=== PATIENT | female | born 1945 | race Caucasian/White ===

== ENCOUNTER 2017-11-01 08:01 | Inpatient (IN) | payer MEDICARE, BC, SELFPAY ==
[2017-11-01] VITALS (9 sets, daily range): BP systolic 86–112; BP diastolic 52–60; PULSE 75–110; RESP 14–22; TEMP 36.6–37.2; O2SAT 97–100; BMI 20.3; BMI 20.6
--- NOTE | 2017-11-01 08:19 | PC.NURSE ---
pt reports, discomfort
--- NOTE | 2017-11-01 08:22 | PC.NURSE ---
dark stool the last 4 days, dizziness for one week.
[2017-11-01 08:56] LABS: Add Manual Diff / Slide Review NO; Basophils Percent Auto 0.3 % (0-2); Eosinophils Percent Auto 0.1 % (2-4); Hematocrit 24.6 % (36-46); Hemoglobin 8.8 g/dL (12.0-16.0); Lymphocytes Percent Auto 17.1 % (25-40); Mean Corpuscular HGB Conc 35.7 % (30-36); Mean Corpuscular Hemoglobin 33.1 PG (26-34); Mean Corpuscular Volume 92.7 fL (80-100); Monocytes Percent Auto 5.6 % (3-14); Neutrophils Absolute Auto 4800 /uL (3000-5900); Neutrophils Percent Auto 76.9 % (50-75); Platelet Count 160 X10^3/uL (150-400); Red Blood Cell Count 2.65 X10^6/uL (4.0-5.2); Red Cell Distribution Width 12.7 % (11.6-14.8); White Blood Cell Count 6.3 X10^3/uL (4.5-11.0)
[2017-11-01 09:01] LABS: Alanine Aminotransferase 29 IU/L (9-52); Albumin 3.6 g/dL (3.5-5.0); Albumin Globulin Ratio 1.6 (1.0-2.8); Alkaline Phosphatase 45 U/L (38-126); Aspartate Aminotransferase 20 IU/L (14-36); BUN Creatinine Ratio 52.9 (6-22); Bilirubin Total 0.4 mg/dL (0.2-1.3); Blood Urea Nitrogen 37 mg/dL (7-17); Calcium 9.2 mg/dL (8.4-10.2); Carbon Dioxide 23 mmol/L (22-32); Chloride 102 mmol/L (98-107); Estimated Glomerular Filt Rate > 60.0 mL/min (>60); Globulin 2.2 g/dL (1.7-4.1); Glucose 100 mg/dL (80-110); HEMOLYSIS < 15 (0-50); Lipase 142 U/L (23-300); Potassium 4.1 mmol/L (3.4-5.1); Sodium 135 mmol/L (137-145); Total Protein 5.8 g/dL (6.3-8.2)
[2017-11-01 09:30] LABS: INR 1.1 (0.9-1.3); Prothrombin Time 11.8 SECONDS (10.1-12.7)
[2017-11-01 09:33] LABS: PTT Partial Thromboplastin Tim 29 SECONDS (26.4-36.2)
--- NOTE | 2017-11-01 10:08 | ED_ITS ---
HPI - Abdominal Pain General Chief Complaint: Abdominal Pain Stated Complaint: Dark stools, dizziness History of Present Illness HPI narrative: HPI 72-year-old female presents for evaluation of 3-4 days of dark tarry stools, mild lightheadedness, and mild decreased exercise tolerance. Patient notes that she takes ibuprofen 3 to 4 times per week for headaches. Denies a history of EtOH abuse. No known liver disease. * Anticoagulation / antiplatelet: denies. * Colonoscopy: ~10 years ago * Denies a history of aortic aneurysm repair. M/S/F/SocHx notable for: please see HPI; remainder reviewed with patient and in chart. ROS: Negative constitutional, eye, cardiovascular, pulmonary, GI, , MSK, skin , neurologic, psychiatric, endocrine unless noted in the HPI. Exam Gen: Pleasant, non-toxic appearing, resting comfortably. HEENT: NC, AT, PEERL, EOMI. Resp: Clear to auscultation bilaterally, normal work of breathing, no accessory muscle usage. Card: Regular rate and rhythm with no murmurs, rubs, or gallops, extremities warm and well perfused. GI: Non-tender to palpation throughout all quadrants, no focal tenderness at McBurney's point, negative Garrison's sign, non-distended, no rebound or guarding. : Chaperoned exam - no visible fissures, there are no visible prolapsed internal hemorrhoids or thrombosed/inflammed/bleeding external hemorroids. No visible areas of perianal erythema and there is no palpable perianal fluctance, crepitus or warmth. Digital rectal exam without gross blood or palpable abnormalities. MSK: No visible deformities, strength and tone without visually appreciable deficit. Skin: mild pallor, otherwise normal color with no visible lesions. Neuro: AO x 3, no facial asymmetry, vision and hearing WNL. Psych: Mood and affect appropriate. Labs / Imaging: WBC 6.3, Hb 8.8, PLT 160, PT/INR , total bilirubin 0.4, AST 20, ALT 29, ALP 45 Na 135, K 4.1, BUN 37, Cr 0.70 (BUN/Cr 52.9) MDM Previous chart, nursing note, labs, imaging, and vitals reviewed. A: 72-year-old female presents for evaluation of 3-4 days of dark tarry stools, mild lightheadedness, and mild decreased exercise tolerance. DDx: angiodysplasia, diverticulosis / diverticulitis, colitis (ischemic, radiation), colonic carcinoma or polyp, anal fissure, hemorrhoids, inflammatory bowel disease, ischaemic colitis, fistula, Meckel?s diverticulum, colonic ulcer , small bowel diease (tumor, diverticula, intussusception), hemobilia, upper GI bleed, hypovolemia, anemia, coagulopathy. Evaluation: * FOBT positive * patient anemic, BUN/Cr ratio suggestive of upper GI source, this is congruent with the patient's stool color. Tentatively suspect secondary to NSAID ulcers/ gastritis. No evidence of hepatic disease or variceal bleeding. Transfusion not presently required. Type and screen sent. * Patient admitted for further evaluation. * Discussed patient's case with the general surgeon management information systems director, Dr. Lemons, patient appropriate for management at this facility. * Patient admitted to Dr. Diaz, Protonix given. Bridging orders entered ( n.p.o., NS at 125 ML/HR). Impression: suspected upper GI bleed. (please reference below for remainder of encounter information) Related Data Home Medications Medication Instructions Recorded Confirmed alprazolam 0.25 mg #0 04/09/17 mfxesoo-iuqpnddvxbusa-xuxqhlmp 1 tab PO #0 04/09/17 [Excedrin Migraine] ibuprofen [Advil] #0 04/09/17 omega 4-hup-xsu-fish oil [Fish Oil] 1,000 mg PO #0 04/09/17 Previous Rx's Medication Instructions Recorded candesartan 16 mg PO QDAY #30 tab 06/09/17 sumatriptan succinate 100 mg PO SEE INSTRUCTIONS #12 tab 06/09/17 Allergies Allergy/AdvReac Type Severity Reaction Status Date / Time No Known Drug Allergies Allergy Verified 11/01/17 08:12 [facility] Social History Smoking Status: Never smoker Exam Initial Vital Signs Initial Vital Signs: Vital Signs Temperature 98.8 F 11/01/17 08:02 Pulse Rate 110 H 11/01/17 08:02 Respiratory Rate 22 11/01/17 08:02 Blood Pressure 108/60 11/01/17 08:02 Pulse Oximetry 100 11/01/17 08:02 Course Orders Ordered: ED Orders 11/01/17 08:25 Complete Blood Count AUTO DIFF Stat Comprehensive Metabolic Panel Stat Lipase Stat Partial Thromboplastin Time Stat Prothrombin Time INR Stat Type and Screen Stat 11/01/17 10:01 Consult to Physician Routine Consult to Physician Stat Pantoprazole Sodium 80 mg/ (Sodium Chloride) 100 mls @ 10 mls/hr IV NOW ONE Stop: 11/01/17 20:00 Sodium Chloride (Normal Saline 0.9%) 1,000 mls @ 125 mls/hr IV CONT EDWARD Vital Signs - 8 hr 11/01/17 08:02 11/01/17 08:49 11/01/17 10:01 Temperature 98.8 F Pulse Rate 110 H 81 90 Respiratory Rate 22 14 14 Blood Pressure 108/60 Blood Pressure [Left Arm] 102/56 L Pulse Oximetry 100 97 100 MDM - Abdominal Pain Lab Data Result diagrams: 11/01/17 08:25 11/01/17 08:25 Lab Results 11/01/17 11/01/17 11/01/17 Range/Units 08:25 08:25 08:25 WBC 6.3 (4.5-11.0) X10^3/uL RBC 2.65 L (4.0-5.2) X10^6/uL Hgb 8.8 L (12.0-16.0) g/dL Hct 24.6 L (36-46) % MCV 92.7 (80-100) fL MCH 33.1 (26-34) PG MCHC 35.7 (30-36) % RDW 12.7 (11.6-14.8) % Plt Count 160 (150-400) X10^3/uL Neut % (Auto) 76.9 H (50-75) % Lymph % (Auto) 17.1 L (25-40) % [place] % (Auto) 5.6 (3-14) % Eos % (Auto) 0.1 L (2-4) % Baso % (Auto) 0.3 (0-2) % Neut # (Auto) 4800 (5324-7704) /uL PT (10.1-12.7) SECONDS INR (0.9-1.3) APTT (26.4-36.2) SECONDS Sodium 135 L (137-145) mmol/L Potassium 4.1 (3.4-5.1) mmol/L Chloride 102 (98-107) mmol/L Carbon Dioxide 23 (22-32) mmol/L BUN 37 H (7-17) mg/dL Creatinine 0.70 (0.52-1.04) mg/dL Estimated GFR > 60.0 (>60) mL/min BUN/Creatinine Ratio 52.9 H (6-22) Glucose 100 (80-110) mg/dL Calcium 9.2 (8.4-10.2) mg/dL Total Bilirubin 0.4 (0.2-1.3) mg/dL AST 20 (14-36) IU/L ALT 29 (9-52) IU/L Alkaline Phosphatase 45 (38-126) U/L Total Protein 5.8 L (6.3-8.2) g/dL Albumin 3.6 (3.5-5.0) g/dL Globulin 2.2 (1.7-4.1) g/dL Albumin/Globulin Ratio 1.6 (1.0-2.8) Lipase 142 (23-300) U/L Blood Type O Positive Antibody Screen Negative 11/01/17 Range/Units 08:25 WBC (4.5-11.0) X10^3/uL RBC (4.0-5.2) X10^6/uL Hgb (12.0-16.0) g/dL Hct (36-46) % MCV (80-100) fL MCH (26-34) PG MCHC (30-36) % RDW (11.6-14.8) % Plt Count (150-400) X10^3/uL Neut % (Auto) (50-75) % Lymph % (Auto) (25-40) % [place] % (Auto) (3-14) % Eos % (Auto) (2-4) % Baso % (Auto) (0-2) % Neut # (Auto) (9901-4674) /uL PT 11.8 (10.1-12.7) SECONDS INR 1.1 (0.9-1.3) APTT 29 (26.4-36.2) SECONDS Sodium (137-145) mmol/L Potassium (3.4-5.1) mmol/L Chloride (98-107) mmol/L Carbon Dioxide (22-32) mmol/L BUN (7-17) mg/dL Creatinine (0.52-1.04) mg/dL Estimated GFR (>60) mL/min BUN/Creatinine Ratio (6-22) Glucose (80-110) mg/dL Calcium (8.4-10.2) mg/dL Total Bilirubin (0.2-1.3) mg/dL AST (14-36) IU/L ALT (9-52) IU/L Alkaline Phosphatase (38-126) U/L Total Protein (6.3-8.2) g/dL Albumin (3.5-5.0) g/dL Globulin (1.7-4.1) g/dL Albumin/Globulin Ratio (1.0-2.8) Lipase (23-300) U/L Blood Type Antibody Screen Discharge Plan Departure Patient Disposition: Admitted as Observation Clinical Impression: Acute upper gastrointestinal bleeding
[2017-11-01] MEDS: SODIUM CHLORIDE 0.9% 1,000 ML 125 ML IV ×2 (10:26→20:45)
[2017-11-01] MEDS: PANTOPRAZOLE 80 MG in SODIUM CHLORIDE 0.9% 100 ML 10 ML IV ×2 (10:26→20:45)
--- NOTE | 2017-11-01 13:18 | PC.NURSE ---
Day shift: Arrived on unit from ED at approx 1000. Oriented to room and call light. Remains NPO. has not been in to see Pt as this is writen. IV fluids and IV protonix running per JUL. SBA to BR. Does have weakness and light headedness. No pain. Reports dark stool for 4 days. H/H is 8/24. Per ED RN report plan is for scope tomorrow.
[2017-11-01 13:43] LABS: Add Manual Diff / Slide Review NO; Basophils Percent Auto 0.3 % (0-2); Eosinophils Percent Auto 0.2 % (2-4); Hematocrit 22.8 % (36-46); Hemoglobin 8.1 g/dL (12.0-16.0); Lymphocytes Percent Auto 26.7 % (25-40); Mean Corpuscular HGB Conc 35.5 % (30-36); Mean Corpuscular Hemoglobin 32.8 PG (26-34); Mean Corpuscular Volume 92.5 fL (80-100); Monocytes Percent Auto 7.2 % (3-14); Neutrophils Absolute Auto 5200 /uL (3000-5900); Neutrophils Percent Auto 65.6 % (50-75); Platelet Count 148 X10^3/uL (150-400); Red Blood Cell Count 2.46 X10^6/uL (4.0-5.2); Red Cell Distribution Width 12.8 % (11.6-14.8)
--- NOTE | 2017-11-01 13:54 | PM.HP.1 ---
History of Present Illness Chief complaint: Dark stools, dizziness Narrative: Tootie Quintero is a 72 year old female who presents to the emergency department today via private vehicle with complaints of exertional dyspnea, progressively worsening over the course of the last several days and black tarry stools and lightheadedness and dizziness. She has a history primarily of migraine headaches and hyperlipidemia and takes ibuprofen up to 3 to 4 times a week for migraine headaches. She noticed over the last 2 years she has had progressive worsening lightheadedness and then she developed upper abdominal pain that awakened her from sleep from Friday night and Friday night and this was associated with black tarry stools. She has approximately 2 black tarry stools the day had 1 this morning and that she describes as being small. She had some in the office on Friday to get an appointment to follow-up on her hyperlipidemia with Dr. Michelle and then because of the worsened the exertional dyspnea she phone the on-call physician and was instructed to go to the emergency room. She was found to have melena stools that were heme-positive and significant anemia and therefore she was admitted for further treatment and monitoring. She was last seen by Dr. Michelle approximately a year ago. Her past medical history: 1. Migraine headache disorder for which she sees Olivier Angeles. Last seen approximately 8 months ago. Two. Hyperlipidemia Past surgical history: One. 1948 she had a T and adenoidectomy Two. 1977 primary low transverse section 3. Benign breast tumor removal in 1983. 4. GHADA with BSO secondary to endometriosis 1983 Health related behavior: she does not smoke and has never been a smoker; occasional alcohol; she works out at [employer] 3 days a week and she walks frequently even on a daily basis Social history: She is and lives with her here in in a [facility]. They have 1 daughter who is 40 years old who lives in [facility]. Patient is originally from [facility] but they moved to [place] to retire. Family history: Mom at age 84 with dementia and presumed acute [place] Dad in 1965 from COPD and prostate cancer Sister at age 59 from non-Hodgkin's lymphoma Aunt with breast cancer Uncle with throat cancer Patient History Family & Social History Social History: household members spouse Prior Living Arrangements House Safety & Behavioral: Feels Safe in Current Yes Environment Been Physically Hurt or No Threatened By a Person Suicidal Ideation Description None Suicide Plan Description No Plan Tobacco & Substance use: Smoking Status Never smoker alcohol intake current alcohol intake frequency a few times a month Substance Use Type does not use Meds Home Medications Medication Instructions Recorded Confirmed Type alprazolam 0.25 mg PO PRN PRN #0 04/09/17 11/01/17 History dzyeoyu-hmqunazsaqvnr-hogfeiaw 1 tab PO PRN PRN #0 04/09/17 11/01/17 History [Excedrin Migraine] ibuprofen [Advil] 100 mg PO PRN PRN #0 04/09/17 11/01/17 History omega 6-pzq-yet-fish oil [Fish Oil] 1,000 mg PO DAILY #0 04/09/17 11/01/17 History candesartan 16 mg PO QDAY #30 tab 06/09/17 11/01/17 Rx sumatriptan succinate 100 mg PO SEE INSTRUCTIONS #12 tab 06/09/17 11/01/17 Rx Allergies Allergy/AdvReac Type Severity Reaction Status Date / Time No Known Drug Allergies Allergy Verified 11/01/17 08:12 Review of Systems Review of Systems Patient's last colonoscopy was greater than 10 years ago and was normal. Patient denies any chest pain. Patient is having worsening exertional dyspnea. Patient is having increasing lightheadedness and dizziness with any significant physical activity. She denies presyncope or syncope. She denies any hematemesis. She denies any bright red blood per rectum or hematochezia. She has had mild midepigastric pain. She has had her normal number of migraine headaches. She denies depression or anxiety. She denies skin rashes All systems reviewed & are unremarkable except as noted in HPI and below Exam Vital Signs (past 8 hours): Vital Signs - 8 hr 11/01/17 08:02 11/01/17 08:49 11/01/17 10:01 Temperature 98.8 F Pulse Rate 110 H 81 90 Respiratory Rate 22 14 14 Blood Pressure 108/60 Blood Pressure [Left Arm] 102/56 L Pulse Oximetry 100 97 100 11/01/17 10:03 11/01/17 10:36 Temperature 98.9 F Pulse Rate 86 86 Respiratory Rate 20 16 Blood Pressure 100/60 112/52 L Blood Pressure [Left Arm] Pulse Oximetry 100 100 Pulse Oximetry 100 Oxygen Delivery Method Room Air Narrative Exam Narrative: This very pleasant pale appearing female in no apparent distress. Vital signs are stable HEENT: Conjunctivae are pale. Mucous membranes are moist and pink Neck: Supple without adenopathy or thyromegaly Chest: Clear to auscultation without wheezes rhonchi or crackles Cor: Regular rate and rhythm with distant S1 and S2. No murmur rubs or gallops Abdomen: Positive bowel sounds, soft, nontender, nondistended, no hepatosplenomegaly, no guarding, no rebound Extremities: No edema, pulses intact Skin: Pale no rashes Neurologic exam: Nonfocal Objective Labs Result Diagrams: 11/01/17 13:38 11/01/17 08:25 Labs: Laboratory Results - last 24 hr 11/01/17 11/01/17 11/01/17 08:25 08:25 08:25 WBC 6.3 RBC 2.65 L Hgb 8.8 L Hct 24.6 L MCV 92.7 MCH 33.1 MCHC 35.7 RDW 12.7 Plt Count 160 Neut % (Auto) 76.9 H Lymph % (Auto) 17.1 L [place] % (Auto) 5.6 Eos % (Auto) 0.1 L Baso % (Auto) 0.3 Neut # (Auto) 4800 PT INR APTT Sodium 135 L Potassium 4.1 Chloride 102 Carbon Dioxide 23 BUN 37 H Creatinine 0.70 Estimated GFR > 60.0 BUN/Creatinine Ratio 52.9 H Glucose 100 Calcium 9.2 Total Bilirubin 0.4 AST 20 ALT 29 Alkaline Phosphatase 45 Total Protein 5.8 L Albumin 3.6 Globulin 2.2 Albumin/Globulin Ratio 1.6 Lipase 142 Blood Type O Positive Antibody Screen Negative 11/01/17 11/01/17 08:25 13:38 WBC 8.0 RBC 2.46 L Hgb 8.1 L Hct 22.8 L MCV 92.5 MCH 32.8 MCHC 35.5 RDW 12.8 Plt Count 148 L Neut % (Auto) 65.6 Lymph % (Auto) 26.7 [place] % (Auto) 7.2 Eos % (Auto) 0.2 L Baso % (Auto) 0.3 Neut # (Auto) 5200 PT 11.8 INR 1.1 APTT 29 Sodium Potassium Chloride Carbon Dioxide BUN Creatinine Estimated GFR BUN/Creatinine Ratio Glucose Calcium Total Bilirubin AST ALT Alkaline Phosphatase Total Protein Albumin Globulin Albumin/Globulin Ratio Lipase Blood Type Antibody Screen Assessment & Plan Plan: Plan: 72-year-old female admitted for anemia secondary to GI blood loss thought to be upper GI in location. Admit to the hospital. Serial H and H and if persistent blood loss will transfuse blood. Will type and hold x2 units and stay [address] Lemons has been consulted for presumed upper endoscopy PPI IV IV fluids No further NSAIDs Patient currently hemodynamically stable Assessment 2. Migraine headache disorder Plan: No further NSAIDs. Will hold the candesartan for now given blood loss. Will use sumatriptan as needed and Tylenol as needed Assessment 2. DVT prophylaxis will do bilateral SCDs. Lovenox is contraindicated Code status full code
--- NOTE | 2017-11-01 14:07 | P.HP_ITS ---
History of Present Illness Chief complaint: Dark stools, dizziness Narrative: Tootie Quintero is a 72 year old female who presents to the emergency department today via private vehicle with complaints of exertional dyspnea, progressively worsening over the course of the last several days and black tarry stools and lightheadedness and dizziness. She has a history primarily of migraine headaches and hyperlipidemia and takes ibuprofen up to 3 to 4 times a week for migraine headaches. She noticed over the last 2 years she has had progressive worsening lightheadedness and then she developed upper abdominal pain that awakened her from sleep from Friday night and Friday night and this was associated with black tarry stools. She has approximately 2 black tarry stools the day had 1 this morning and that she describes as being small. She had some in the office on Friday to get an appointment to follow-up on her hyperlipidemia with Dr. Michelle and then because of the worsened the exertional dyspnea she phone the on-call physician and was instructed to go to the emergency room. She was found to have melena stools that were heme-positive and significant anemia and therefore she was admitted for further treatment and monitoring. She was last seen by Dr. Michelle approximately a year ago. Her past medical history: 1. Migraine headache disorder for which she sees Olivier Angeles. Last seen approximately 8 months ago. Two. Hyperlipidemia Past surgical history: One. 1948 she had a T and adenoidectomy Two. 1977 primary low transverse section 3. Benign breast tumor removal in 1983. 4. GHADA with BSO secondary to endometriosis 1983 Health related behavior: she does not smoke and has never been a smoker; occasional alcohol; she works out at [employer] 3 days a week and she walks frequently even on a daily basis Social history: She is and lives with her here in in a [facility]. They have 1 daughter who is 40 years old who lives in [facility]. Patient is originally from [facility] but they moved to [place] to retire. Family history: Mom at age 84 with dementia and presumed acute [place] Dad in 1965 from COPD and prostate cancer Sister at age 59 from non-Hodgkin's lymphoma Aunt with breast cancer Uncle with throat cancer Patient History Family & Social History Social History: household members spouse Prior Living Arrangements House Safety & Behavioral: Feels Safe in Current Yes Environment Been Physically Hurt or No Threatened By a Person Suicidal Ideation Description None Suicide Plan Description No Plan Tobacco & Substance use: Smoking Status Never smoker alcohol intake current alcohol intake frequency a few times a month Substance Use Type does not use Meds Home Medications Medication Instructions Recorded Confirmed Type alprazolam 0.25 mg PO PRN PRN #0 04/09/17 11/01/17 History leetekx-khxfunmhlkbdd-ujxngwzh 1 tab PO PRN PRN #0 04/09/17 11/01/17 History [Excedrin Migraine] ibuprofen [Advil] 100 mg PO PRN PRN #0 04/09/17 11/01/17 History omega 4-fxp-byi-fish oil [Fish Oil] 1,000 mg PO DAILY #0 04/09/17 11/01/17 History candesartan 16 mg PO QDAY #30 tab 06/09/17 11/01/17 Rx sumatriptan succinate 100 mg PO SEE INSTRUCTIONS #12 tab 06/09/17 11/01/17 Rx Allergies Allergy/AdvReac Type Severity Reaction Status Date / Time No Known Drug Allergies Allergy Verified 11/01/17 08:12 Review of Systems Review of Systems Patient's last colonoscopy was greater than 10 years ago and was normal. Patient denies any chest pain. Patient is having worsening exertional dyspnea. Patient is having increasing lightheadedness and dizziness with any significant physical activity. She denies presyncope or syncope. She denies any hematemesis. She denies any bright red blood per rectum or hematochezia. She has had mild midepigastric pain. She has had her normal number of migraine headaches. She denies depression or anxiety. She denies skin rashes All systems reviewed & are unremarkable except as noted in HPI and below Exam Vital Signs (past 8 hours): Vital Signs - 8 hr 3 11/01/17 08:02 11/01/17 08:49 11/01/17 10:01 Temperature 98.8 F Pulse Rate 110 H 81 90 Respiratory Rate 22 14 14 Blood Pressure 108/60 Blood Pressure [Left Arm] 102/56 L Pulse Oximetry 100 97 100 3 11/01/17 10:03 11/01/17 10:36 Temperature 98.9 F Pulse Rate 86 86 Respiratory Rate 20 16 Blood Pressure 100/60 112/52 L Blood Pressure [Left Arm] Pulse Oximetry 100 100 Pulse Oximetry 100 Oxygen Delivery Method Room Air Narrative Exam Narrative: This very pleasant pale appearing female in no apparent distress. Vital signs are stable HEENT: Conjunctivae are pale. Mucous membranes are moist and pink Neck: Supple without adenopathy or thyromegaly Chest: Clear to auscultation without wheezes rhonchi or crackles Cor: Regular rate and rhythm with distant S1 and S2. No murmur rubs or gallops Abdomen: Positive bowel sounds, soft, nontender, nondistended, no hepatosplenomegaly, no guarding, no rebound Extremities: No edema, pulses intact Skin: Pale no rashes Neurologic exam: Nonfocal Objective Labs Result Diagrams: 11/01/17 13:38 11/01/17 08:25 Labs: Laboratory Results - last 24 hr 11/01/17 11/01/17 11/01/17 08:25 08:25 08:25 WBC 6.3 RBC 2.65 L Hgb 8.8 L Hct 24.6 L MCV 92.7 MCH 33.1 MCHC 35.7 RDW 12.7 Plt Count 160 Neut % (Auto) 76.9 H Lymph % (Auto) 17.[address] % (Auto) 5.6 Eos % (Auto) 0.1 L Baso % (Auto) 0.3 Neut # (Auto) 4800 PT INR APTT Sodium 135 L Potassium 4.1 Chloride 102 Carbon Dioxide 23 BUN 37 H Creatinine 0.70 Estimated GFR > 60.0 BUN/Creatinine Ratio 52.9 H Glucose 100 Calcium 9.2 Total Bilirubin 0.4 AST 20 ALT 29 Alkaline Phosphatase 45 Total Protein 5.8 L Albumin 3.6 Globulin 2.2 Albumin/Globulin Ratio 1.6 Lipase 142 Blood Type O Positive Antibody Screen Negative 11/01/17 11/01/17 08:25 13:38 WBC 8.0 RBC 2.46 L Hgb 8.1 L Hct 22.8 L MCV 92.5 MCH 32.8 MCHC 35.5 RDW 12.8 Plt Count 148 L Neut % (Auto) 65.6 Lymph % (Auto) 26.7 [place] % (Auto) 7.2 Eos % (Auto) 0.2 L Baso % (Auto) 0.3 Neut # (Auto) 5200 PT 11.8 INR 1.1 APTT 29 Sodium Potassium Chloride Carbon Dioxide BUN Creatinine Estimated GFR BUN/Creatinine Ratio Glucose Calcium Total Bilirubin AST ALT Alkaline Phosphatase Total Protein Albumin Globulin Albumin/Globulin Ratio Lipase Blood Type Antibody Screen Assessment & Plan Plan: Plan: 72-year-old female admitted for anemia secondary to GI blood loss thought to be upper GI in location. Admit to the hospital. Serial H and H and if persistent blood loss will transfuse blood. Will type and hold x2 units and stay [address] Lemons has been consulted for presumed upper endoscopy PPI IV IV fluids No further NSAIDs Patient currently hemodynamically stable Assessment 2. Migraine headache disorder Plan: No further NSAIDs. Will hold the candesartan for now given blood loss. Will use sumatriptan as needed and Tylenol as needed Assessment 2. DVT prophylaxis will do bilateral SCDs. Lovenox is contraindicated Code status full code
--- NOTE | 2017-11-01 20:35 | P.CONS_ITS ---
History of Present Illness Date Patient Seen: 11/01/17 Time Patient Seen: 20:22 Chief complaint: Dark stools, dizziness Reason for consult: Intestinal bleeding Requesting provider: Alison Diaz Narrative: The patient is a woman who has been having black stools about twice a day for the last 4 days. She has become weak and on standing gets dizzy. This is unusual for her. She has only had 1 stool today she says. She had breakfast this morning and therefore I did not pursue EGD today. She has tolerated p.o. food. No nausea or vomiting. She has been taking nonsteroidal anti-inflammatory agents for migraine headaches. She is not usually on any acid suppression medication. [facility] Medical History Anxiety as acute reaction to exceptional stress (Chronic) Hypercholesterolemia (Chronic) Migraine headache (Chronic) History of benign breast biopsy (Resolved) Surgical History History of (Resolved) History of abdominal hysterectomy (Resolved) History of tonsillectomy and adenoidectomy (Resolved) Family History Father No problems noted. Mother No problems noted. Sister No problems noted. Social History household members: spouse Smoking Status: Never smoker alcohol intake: current Meds Home Medications Medication Instructions Recorded Confirmed Type alprazolam 0.25 mg PO PRN PRN #0 04/09/17 11/01/17 History [id number]-wtcuawnnpgczm-[id number] 1 tab PO PRN PRN #0 04/09/17 11/01/17 History [Excedrin Migraine] ibuprofen [Advil] 100 mg PO PRN PRN #0 04/09/17 11/01/17 History omega 9-hfk-pcb-fish oil [Fish Oil] 1,000 mg PO DAILY #0 04/09/17 11/01/17 History candesartan 16 mg PO QDAY #30 tab 06/09/17 11/01/17 Rx sumatriptan succinate 100 mg PO SEE INSTRUCTIONS #12 tab 06/09/17 11/01/17 Rx Allergies Allergy/AdvReac Type Severity Reaction Status Date / Time No Known Drug Allergies Allergy Verified 11/01/17 08:12 Review of Systems Review of Systems Patient has dry eyes and has had some kind of procedure to block her tear ducts. She wears glasses. No pain arise no earaches or sore throat. No cough cold or asthma. No tooth aches no trouble swallowing. No heart problems chest pain unusual shortness of breath. No bloody bowel movements in the last 40 years. Then she had hemorrhoids. Last colonoscopy 10 years ago. She is due. No seizures or blackouts. No chronic joint or muscle pain. No problems with her pancreas but may be slightly hypothyroid. She suffers from intermittent anxiety and takes an ex perhaps 4 times a year. She had a benign breast biopsy. Up-to-date on mammogram was. Exam Vital Signs (past 8 hours): Vital Signs - 8 hr 3 11/01/17 13:58 11/01/17 16:00 Temperature 98.5 F 98.2 F Pulse Rate 89 89 Respiratory Rate 16 18 Blood Pressure 92/54 L 93/53 L Pulse Oximetry 100 98 Pulse Oximetry 98 Oxygen Delivery Method Room Air Narrative Exam Narrative: Operative pleasant woman in no apparent distress. Her eyes are nonicteric. Pupils equal round reactive to light. Conjunctivae are pale. Ears without lesion. Nasal septum midline without polyps in. Oral mucosa is dry no open lesions. Teeth are intact. She has a prominent hard palate(tensor palatini). No splits in her lips or swelling. Neck is supple. There are no nodes in the neck or supraclavicular areas. Trachea is midline and mobile. Thyroid is not enlarged. There are no masses in neck or thyroid. Lungs are clear to auscultation without rales or rhonchi tiny curve percussion. Heart regular rate and rhythm with occasional ectopy. No bruit in the neck. Her abdomen is scaphoid soft nontender without mass. Liver and spleen are not enlarged. She has a vertical midline scar and a transverse scar in her lower abdomen. I do not appreciate any hernias in the area. She is alert and oriented x3. Speech rate and content are appropriate. Affect is appropriate. Objective Labs Result Diagrams: 11/01/17 13:38 11/01/17 08:25 Labs: Laboratory Results - last 24 hr 11/01/17 11/01/17 11/01/17 08:25 08:25 08:25 WBC 6.3 RBC 2.65 L Hgb 8.8 L Hct 24.6 L MCV 92.7 MCH 33.1 MCHC 35.7 RDW 12.7 Plt Count 160 Neut % (Auto) 76.9 H Lymph % (Auto) 17.1 L Hendricks % (Auto) 5.6 Eos % (Auto) 0.1 L Baso % (Auto) 0.3 Neut # (Auto) 4800 PT INR APTT Sodium 135 L Potassium 4.1 Chloride 102 Carbon Dioxide 23 BUN 37 H Creatinine 0.70 Estimated GFR > 60.0 BUN/Creatinine Ratio 52.9 H Glucose 100 Calcium 9.2 Total Bilirubin 0.4 AST 20 ALT 29 Alkaline Phosphatase 45 Total Protein 5.8 L Albumin 3.6 Globulin 2.2 Albumin/Globulin Ratio 1.6 Lipase 142 Blood Type O Positive Antibody Screen Negative 11/01/17 11/01/17 08:25 13:38 WBC 8.0 RBC 2.46 L Hgb 8.1 L Hct 22.8 L MCV 92.5 MCH 32.8 MCHC 35.5 RDW 12.8 Plt Count 148 L Neut % (Auto) 65.6 Lymph % (Auto) 26.7 Hendricks % (Auto) 7.2 Eos % (Auto) 0.2 L Baso % (Auto) 0.3 Neut # (Auto) 5200 PT 11.8 INR 1.1 APTT 29 Sodium Potassium Chloride Carbon Dioxide BUN Creatinine Estimated GFR BUN/Creatinine Ratio Glucose Calcium Total Bilirubin AST ALT Alkaline Phosphatase Total Protein Albumin Globulin Albumin/Globulin Ratio Lipase Blood Type Antibody Screen Assessment & Plan Plan: Plan: Patient with an upper GI bleed for the last 4 days. Would recommend an EGD and potential need for treatment. I believe she is probably stop bleeding based on the fact she has had no more black bowel movements since arriving. She is on proton pump inhibitors. Plan to do this in the morning. I have discussed the procedure and rationale with her. Risks of bleeding, and perforation were discussed. I also discussed the possible use of anesthesia NK she begins to bleed again. This would allow me to protect her airway by intubating her. All questions were answered. I will call her let him know when.
--- NOTE | 2017-11-01 21:51 | PC.NURSE ---
Evening Shift Note A&O throughout shift, VSS, 98% on RA. No complaints of pain or discomfort. Pt tolerating full liquid diet w/o N/V. NPO @ 0000 for scheduled endoscopy. Consent signed and in chart. No dark tarry stools this shift. Up w/ SBA, tolerating activity w/o dizziness, uses ronnie light appropriately. L W PIV w/ NS @ 125ml/hr and Protonix @ 10ml/hr.
[2017-11-02] VITALS (30 sets, daily range): BP systolic 78–101; BP diastolic 43–62; PULSE 65–80; RESP 10–22; TEMP 36.6–37.2; O2SAT 91–98
--- NOTE | 2017-11-02 | PATH_ITS ---
[facility] Accession Number: [id number] . 01 Material submitted: . ANTRAL . 02 Diagnosis: Biopsy Gastric Antrum: Focal minimal chronic gastritis. Negative for evidence of Helicobacter on H/E stain. Negative for intestinal metaplasia. Negative for dysplasia and malignancy. V/11/04/2017 . 02 Electronically signed: . Artemio Jauregui MD, Pathologist NPI- [id number] . 01 Gross description: . Received in one formalin-filled container, labeled with the patient's name, labeled antral, are four less than 0.1 cm to 0.3 cm portions of tissue, entirely submitted in one cassette. ([id number]) /FRR . 02 Pathologist provided ICD-10: K29.70 . 02 CPT . 480158 Performed at: 01 [facility] [address] [id number] MD Nilton Canchola MD Phone: [phone] Performed at: 02 [facility] [address] [place], [place] [id number] MD Michael Zarate MD Phone: [phone]
--- NOTE | 2017-11-02 00:02 | PC.NURSE ---
Addendum entered by Hoda Alexander R.N. 11/02/17 07:35: Dr Diaz contacted earlier with report of critical hct of 20.0. Reviewed with her previous hgb/hct results, continued low BP, lack of any BM's during this shift and patient denial of any symptoms. New order was received to transfuse 2 units PRBC's after return from EGD and patient was informed of this and blood consent signed. Subsequently, during bedside shift report patient stated she had just been up to bathroom and had a small black stool although CORPORATE COMMUNICATIONS MANAGER reported stool was formed and brown. Patient also reports she was slightly lightheaded when up to bathroom. Original Note: Addendum entered by Hoda Alexander R.N. 11/02/17 02:23: Dr Diaz informed of earlier BP and now BP lower at 81/46. Patient remains asymptomatic. No new orders at this time. Original Note: Alert and oriented. Breath sounds CTA with RA sat of 97%. Denies SOB, dizziness or lightheadedness. HRR but BP low at 86/52 but patient reports she trends SBP in 90's and is currently asymptomatic. Denies nausea. BT hyperactive. Denies dysuria, frequency, urgency or incontinence. Independent with bed mobility but is provided SBA when OOB for safety as had recent fall. Denies any pain. IVF and Protonix infusing as ordered. NPO now as of 0000 for scheduled EGD in a.m. Fall risk score is high and bed alarm is activated.
[2017-11-02] MEDS: SODIUM CHLORIDE 0.9% 1,000 ML 125 ML IV (02:12)
[2017-11-02 06:25] LABS: Add Manual Diff / Slide Review NO; Basophils Percent Auto 0.7 % (0-2); Eosinophils Percent Auto 1.3 % (2-4); Hemoglobin 7.1 g/dL (12.0-16.0); Lymphocytes Percent Auto 34.1 % (25-40); Mean Corpuscular HGB Conc 35.4 % (30-36); Mean Corpuscular Hemoglobin 33.1 PG (26-34); Mean Corpuscular Volume 93.5 fL (80-100); Monocytes Percent Auto 9.4 % (3-14); Neutrophils Absolute Auto 2200 /uL (3000-5900); Neutrophils Percent Auto 54.5 % (50-75); Platelet Count 130 X10^3/uL (150-400); Red Blood Cell Count 2.14 X10^6/uL (4.0-5.2); Red Cell Distribution Width 12.8 % (11.6-14.8)
[2017-11-02 06:33] LABS: Alanine Aminotransferase 30 IU/L (9-52); Albumin 2.6 g/dL (3.5-5.0); Albumin Globulin Ratio 1.2 (1.0-2.8); Alkaline Phosphatase 32 U/L (38-126); Aspartate Aminotransferase 15 IU/L (14-36); BUN Creatinine Ratio 21.4 (6-22); Bilirubin Total 0.3 mg/dL (0.2-1.3); Blood Urea Nitrogen 15 mg/dL (7-17); Calcium 7.9 mg/dL (8.4-10.2); Carbon Dioxide 25 mmol/L (22-32); Chloride 106 mmol/L (98-107); Estimated Glomerular Filt Rate > 60.0 mL/min (>60); Globulin 2.1 g/dL (1.7-4.1); Glucose 91 mg/dL (80-110); HEMOLYSIS < 15 (0-50); Potassium 3.9 mmol/L (3.4-5.1); Sodium 137 mmol/L (137-145); Total Protein 4.7 g/dL (6.3-8.2)
[2017-11-02] MEDS: PANTOPRAZOLE 80 MG in SODIUM CHLORIDE 0.9% 100 ML 10 ML IV (07:03)
--- NOTE | 2017-11-02 08:58 | PC.NURSE ---
0863 Dr Moses called to have PRBC started as Pt hypotensive. Verified and started PRBC @ 0849. CERTIFIED OPHTHALMIC TECHNICIAN's at bedside for start of transfusion and Pt off floor @ 0858.
[2017-11-02] MEDS: SODIUM CHLORIDE 0.9% 500 ML 21 ML IV (09:10)
--- NOTE | 2017-11-02 09:11 | PM.PREOP ---
Pre-operative Note Interval Note Pre-op Check: History & Physical Reviewed by Physician and Exam Performed H&P completed within 30 days and has changed as indicated here:: hemato crit has fallen to 20. She is getting blood. ASA Class (for procedural sedation): II
--- NOTE | 2017-11-02 09:12 | SUR.HOLD ---
Blood wide open per Dr. Lemons. Peter as witness
[2017-11-02] MEDS: LIDOCAINE 4% SOLN 50 ML 20 ML TOP (09:25)
[2017-11-02] MEDS: TETRACAINE/BENZOCAINE/BUTAMBEN (CETACAINE) BOTTLE 1 SPRAY TOP (09:25)
[2017-11-02] MEDS: fentaNYL 250 MCG/5 ML INJ IV (09:30)
[2017-11-02] MEDS: MIDAZOLAM 5 MG/ML VIAL 2 MG IV (09:30)
--- NOTE | 2017-11-02 09:33 | PM.OP.ENDO ---
Operative Date/Time/Diagnoses - Date of procedure: 11/02/17 Time of procedure: 09:34 Pre-op diagnosis: Upper GI bleed Post-op diagnosis: other (Multiple gastric(antral) ulcers) Procedure & Clinicians Study performed: EGD with cold biopsy Same procedure as scheduled: Yes Indications: Upper GI bleed Surgeon: Balta Lemons Procedure Notes SCOAP/Timeout: Performed Procedure in detail: The patient was placed in left lateral decubitus position underwent IV sedation directed by the surgeon consisting of fentanyl and Versed. Topical anesthetic had been applied to the oropharynx. Bite block was inserted and scope was advanced through it into the esophagus. The esophagus was normal until I reached the GE junction at 40 cm. There was a Schatzki ring but the opening of the esophagus was widely patent. The stomach insufflated well. In the pre-pyloric antrum there were at least 5 visible ulcers. One was a large crater. All were covered with fibrinous exudate and none had a visible vessel. There was absolutely no blood in the upper tract. I passed through the pyloric channel which was edematous into the duodenum. The duodenum was normal to the 3rd part. There may been some mild duodenitis. The scope was brought back into the stomach and retroflexed. There was small hiatal hernia seen from below. Otherwise the proximal stomach was unremarkable. The scope was straightened and multiple biopsies were taken in the antral area at the edges of ulcers. The scope was then removed after removing the air. Patient tolerated the procedure wellThe patient was placed in left lateral decubitus position underwent IV sedation directed by the surgeon consisting of fentanyl and Versed. Topical anesthetic had been applied to the oropharynx. Bite block was inserted and scope was advanced through it into the esophagus. The esophagus was normal until I reached the GE junction at 40 cm. There was a Schatzki ring but the opening of the esophagus was widely patent. The stomach insufflated well. In the pre-pyloric antrum there were at least 5 visible ulcers. One was a large crater. All were covered with fibrinous exudate and none had a visible vessel. There was absolutely no blood in the upper tract. I passed through the pyloric channel which was edematous into the duodenum. The duodenum was normal to the 3rd part. There may been some mild duodenitis. The scope was brought back into the stomach and retroflexed. There was small hiatal hernia seen from below. Otherwise the proximal stomach was unremarkable. The scope was straightened and multiple biopsies were taken in the antral area at the edges of ulcers. The scope was then removed after removing the air. Patient tolerated Scope withdrawal time: Not applicable Sedation minutes: 10 Findings: gastric ulcer (Pre pyloric multiple) Specimen(s): other (Antral biopsies) Complications: none Recommendations: Start medication(s) (Double dose proton pump inhibitor at discharge. Iron replacement. Multiple vitamin.) and Other recommendation (EGD in 10-12 weeks to confirm healing.) Plan for aftercare: Follow-up with me in about 1 month. Follow up: months (One) Disposition: PACU
--- NOTE | 2017-11-02 10:10 | SUR.PHASEI ---
0950 Pt's BP 78/45. Pt awake, alert, denied feeling lightheaded or dizzy. Denied pain. Skin pale. Dr. Lemons notified BP status, pt. in trendelenberg position. VVO to hang another unit. Blood retrieved from the Lab and hung at 75ml/hr.
--- NOTE | 2017-11-02 10:26 | SUR.PHASEI ---
Report called to Muriel Acharya
--- NOTE | 2017-11-02 10:45 | SUR.PHASEI ---
Report to Gaurav Acharya awake, alert. Hypotension but otherwise vs stable. Blood infusing to lt forearm. Rt forearm iv saline locked. Pt's spouse present. Verified he had pt's ring and necklace.
--- NOTE | 2017-11-02 10:47 | SUR.PHASEI ---
addendum: 2nd unit of blood verified with Muriel Villegas.
--- NOTE | 2017-11-02 10:58 | SUR.PHASEI ---
Dr. Lemons evaluated patient prior to transfer to the floor and stated she could be transferred.
--- NOTE | 2017-11-02 11:21 | CM.DPC ---
DCP Assessment: 11/02/17 Case reviewed, EMR reviewed and met with patient. Pt is a 72 yo female admitted under OBS status for Dark Stools/Dizziness/Acute Upper GI bleed, under the care of [facility]. PCP: Dr. Ricardo Michelle Primary payor is: Medicare; secondary is [facility] out of [facility] Other health care agencies used: None Met with patient. Introduced self as DCP, explained role and goals of DCP and as pt advocate and she verbalized understanding. Patient is A&O, very pleasant, and answered all questions. Pt is found reclining in bed after recent EGD this morning. She is also receiving 2nd unit of PRBC. States she was independent at baseline for all ADLs prior to this hospitalization, had no geriatric social work professor or outside help. She lives with her in [place] in their own home. She drives her own car independently. She is not CG for any other. Spouse is Dejuan Quintero who is also her POA. She does have Adv Directives at home, and DCP advised that she have him bring in the paperwork and we can scan it into her medical records. They only have a land line phone: . She does have limited DME in the home: bath bench and a cane which she usually never uses. Let her know where DCP office is located if she or Dejuan should have any questions or needs r/t her eventual discharge. Plan: Discharge to home once deemed medically stable. Likely will need no services. Aislinn Kincaid RN
--- NOTE | 2017-11-02 12:53 | PM.PN.1 ---
Subjective Date Patient Seen: 11/02/17 Time Patient Seen: 12:53 Interval history: Patient is sitting upright in hospital bed and is feeling well. She feels a little bit sleepy but overall feels better and feels better with ambulation with less dizziness and shortness of breath. She has just finished her 2nd unit of packed red blood cells. She underwent an EGD this morning which showed ulcers in the antrum of the stomach. They were not acutely bleeding. Biopsies were taken for H pylori which was likely present. She had 2 small bowel movements this morning that were formed but were black tar colored. She is not having any abdominal pain. She tolerated the food without difficulty. Patient had episodes of hypotension overnight with systolic blood pressure in the lower 80s. She is currently in the 90s. She did not have tachycardia. Her hematocrit dropped to 20 in the us given the hypotension and decreasing hematocrit are low acted to transfuse 2 units of packed red blood cells. Twelve point review of systems is otherwise negative other than above Exam Vital Signs (past 8 hours): Vital Signs - 8 hr 11/02/17 07:29 11/02/17 08:56 11/02/17 09:07 Temperature 98.3 F 97.8 F 99.0 F Pulse Rate 73 72 76 Respiratory Rate 20 18 17 Blood Pressure 83/58 L 99/62 93/58 L Pulse Oximetry 97 11/02/17 09:21 11/02/17 09:26 11/02/17 09:36 Temperature 99.0 F Pulse Rate 67 71 Respiratory Rate 18 Blood Pressure 82/47 L 84/47 L Pulse Oximetry 95 11/02/17 09:39 11/02/17 09:41 11/02/17 09:43 Temperature Pulse Rate 72 74 74 Respiratory Rate 16 10 L 22 Blood Pressure 80/49 L 81/48 L 83/46 L Pulse Oximetry 91 11/02/17 09:46 11/02/17 09:47 11/02/17 09:50 Temperature Pulse Rate 71 71 74 Respiratory Rate 17 17 13 Blood Pressure 78/44 L 78/45 L 82/47 L Pulse Oximetry 96 97 11/02/17 09:51 11/02/17 09:56 11/02/17 10:01 Temperature Pulse Rate 70 71 71 Respiratory Rate 14 18 20 Blood Pressure 78/45 L 79/48 L 79/47 L Pulse Oximetry 97 97 96 11/02/17 10:06 06/03/18 10:16 11/02/17 10:21 Temperature 98.7 F Pulse Rate 69 67 67 Respiratory Rate 20 18 18 Blood Pressure 80/48 L 80/46 L 82/47 L Pulse Oximetry 97 97 98 11/02/17 10:35 11/02/17 11:05 11/02/17 11:35 Temperature 98.4 F 98.7 F 98.4 F Pulse Rate 68 65 71 Respiratory Rate 16 16 16 Blood Pressure 88/52 L 96/46 L Pulse Oximetry 96 97 98 11/02/17 12:46 Temperature 98.8 F Pulse Rate 80 Respiratory Rate 16 Blood Pressure Pulse Oximetry 93 Pulse Oximetry 93 Oxygen Delivery Method Room Air Oxygen Flow Rate 0 Narrative Exam Narrative: Alert and oriented x3. More color in her cheeks HEENT: Unremarkable Neck: Supple without adenopathy or masses Chest: Clear to auscultation without wheezes rhonchi or crackles Cor: Regular rate and rhythm without murmur, rubs, gallops Abdomen: Positive bowel sounds is, soft, nontender, nondistended Extremities: No edema, pulses intact Neurologic exam: Nonfocal Objective Labs Result Diagrams: 11/02/17 06:01 11/02/17 06:01 Labs: Laboratory Results - last 24 hr 11/01/17 11/01/17 11/02/17 08:25 13:38 06:01 WBC 8.0 4.0 L RBC 2.46 L 2.14 L Hgb 8.1 L 7.1 L Hct 22.8 L 20.0 L* MCV 92.5 93.5 MCH 32.8 33.1 MCHC 35.5 35.4 RDW 12.8 12.8 Plt Count 148 L 130 L Neut % (Auto) 65.6 54.5 Lymph % (Auto) 26.7 34.1 Isabela % (Auto) 7.2 9.4 Eos % (Auto) 0.2 L 1.3 L Baso % (Auto) 0.3 0.7 Neut # (Auto) 5200 2200 L Sodium Potassium Chloride Carbon Dioxide BUN Creatinine Estimated GFR BUN/Creatinine Ratio Glucose Calcium Total Bilirubin AST ALT Alkaline Phosphatase Total Protein Albumin Globulin Albumin/Globulin Ratio Blood Type O Positive Antibody Screen Negative Crossmatch (AHG) See Detail 11/02/17 06:01 WBC RBC Hgb Hct MCV MCH MCHC RDW Plt Count Neut % (Auto) Lymph % (Auto) Isabela % (Auto) Eos % (Auto) Baso % (Auto) Neut # (Auto) Sodium 137 Potassium 3.9 Chloride 106 Carbon Dioxide 25 BUN 15 Creatinine 0.70 Estimated GFR > 60.0 BUN/Creatinine Ratio 21.4 Glucose 91 Calcium 7.9 L Total Bilirubin 0.3 AST 15 ALT 30 Alkaline Phosphatase 32 L Total Protein 4.7 L Albumin 2.6 L Globulin 2.1 Albumin/Globulin Ratio 1.2 Blood Type Antibody Screen Crossmatch (AHG) Assessment & Plan Plan: Plan: Very pleasant 74-year-old female admitted for upper GI bleed now status post EGD which shows antral gastric ulcers. Biopsies are pending for H pylori. Patient is status post 2 units packed red blood cells Plan: One. Continue hospitalization to continue to monitor due to patient being hemodynamically safe and stable. She is now improving with fluid resuscitation and packed red blood cell transfusion. We will continue with the IV Protonix continuous drip 80 mg every 10 hr. She will have full liquid diet and advance as tolerated. No more NSAIDs. We will hold her blood pressure medicine that she is on for her migraine headaches at that time because of her hypotension. We will check a hematocrit now and then repeat in the a.m.. Her questions are answered. Assessment 2. Anemia secondary to GI blood loss Plan: Status post 2 units packed red blood cells, recheck in a.m., Protonix Assessment 3. Migraine headache disorder Plan: No further NSAIDs. Will hold antihypertensives for this time. Will likely start tomorrow. Assessment 4. Hyperlipidemia Plan: Will restart lipid-lowering medication.
--- NOTE | 2017-11-02 13:00 | P.PN_ITS ---
Subjective Date Patient Seen: 11/02/17 Time Patient Seen: 12:53 Interval history: Patient is sitting upright in hospital bed and is feeling well. She feels a little bit sleepy but overall feels better and feels better with ambulation with less dizziness and shortness of breath. She has just finished her 2nd unit of packed red blood cells. She underwent an EGD this morning which showed ulcers in the antrum of the stomach. They were not acutely bleeding. Biopsies were taken for H pylori which was likely present. She had 2 small bowel movements this morning that were formed but were black tar colored. She is not having any abdominal pain. She tolerated the food without difficulty. Patient had episodes of hypotension overnight with systolic blood pressure in the lower 80s. She is currently in the 90s. She did not have tachycardia. Her hematocrit dropped to 20 in the us given the hypotension and decreasing hematocrit are low acted to transfuse 2 units of packed red blood cells. Twelve point review of systems is otherwise negative other than above Exam Vital Signs (past 8 hours): Vital Signs - 8 hr 3 11/02/17 07:29 11/02/17 08:56 11/02/17 09:07 Temperature 98.3 F 97.8 F 99.0 F Pulse Rate 73 72 76 Respiratory Rate 20 18 17 Blood Pressure 83/58 L 99/62 93/58 L Pulse Oximetry 97 3 11/02/17 09:21 11/02/17 09:26 11/02/17 09:36 Temperature 99.0 F Pulse Rate 67 71 Respiratory Rate 18 Blood Pressure 82/47 L 84/47 L Pulse Oximetry 95 3 11/02/17 09:39 11/02/17 09:41 11/02/17 09:43 Temperature Pulse Rate 72 74 74 Respiratory Rate 16 10 L 22 Blood Pressure 80/49 L 81/48 L 83/46 L Pulse Oximetry 91 3 11/02/17 09:46 11/02/17 09:47 11/02/17 09:50 Temperature Pulse Rate 71 71 74 Respiratory Rate 17 17 13 Blood Pressure 78/44 L 78/45 L 82/47 L Pulse Oximetry 96 97 3 11/02/17 09:51 11/02/17 09:56 11/02/17 10:01 Temperature Pulse Rate 70 71 71 Respiratory Rate 14 18 20 Blood Pressure 78/45 L 79/48 L 79/47 L Pulse Oximetry 97 97 96 3 11/02/17 10:06 11/02/17 10:16 11/02/17 10:21 Temperature 98.7 F Pulse Rate 69 67 67 Respiratory Rate 20 18 18 Blood Pressure 80/48 L 80/46 L 82/47 L Pulse Oximetry 97 97 98 3 11/02/17 10:35 11/02/17 11:05 11/02/17 11:35 Temperature 98.4 F 98.7 F 98.4 F Pulse Rate 68 65 71 Respiratory Rate 16 16 16 Blood Pressure 88/52 L 96/46 L Pulse Oximetry 96 97 98 3 11/02/17 12:46 Temperature 98.8 F Pulse Rate 80 Respiratory Rate 16 Blood Pressure Pulse Oximetry 93 Pulse Oximetry 93 Oxygen Delivery Method Room Air Oxygen Flow Rate 0 Narrative Exam Narrative: Alert and oriented x3. More color in her cheeks HEENT: Unremarkable Neck: Supple without adenopathy or masses Chest: Clear to auscultation without wheezes rhonchi or crackles Cor: Regular rate and rhythm without murmur, rubs, gallops Abdomen: Positive bowel sounds is, soft, nontender, nondistended Extremities: No edema, pulses intact Neurologic exam: Nonfocal Objective Labs Result Diagrams: 11/02/17 06:01 11/02/17 06:01 Labs: Laboratory Results - last 24 hr 11/01/17 11/01/17 11/02/17 08:25 13:38 06:01 WBC 8.0 4.0 L RBC 2.46 L 2.14 L Hgb 8.1 L 7.1 L Hct 22.8 L 20.0 L* MCV 92.5 93.5 MCH 32.8 33.1 MCHC 35.5 35.4 RDW 12.8 12.8 Plt Count 148 L 130 L Neut % (Auto) 65.6 54.5 Lymph % (Auto) 26.7 34.1 [place] % (Auto) 7.2 9.4 Eos % (Auto) 0.2 L 1.3 L Baso % (Auto) 0.3 0.7 Neut # (Auto) 5200 2200 L Sodium Potassium Chloride Carbon Dioxide BUN Creatinine Estimated GFR BUN/Creatinine Ratio Glucose Calcium Total Bilirubin AST ALT Alkaline Phosphatase Total Protein Albumin Globulin Albumin/Globulin Ratio Blood Type O Positive Antibody Screen Negative Crossmatch (AHG) See Detail 11/02/17 06:01 WBC RBC Hgb Hct MCV MCH MCHC RDW Plt Count Neut % (Auto) Lymph % (Auto) [place] % (Auto) Eos % (Auto) Baso % (Auto) Neut # (Auto) Sodium 137 Potassium 3.9 Chloride 106 Carbon Dioxide 25 BUN 15 Creatinine 0.70 Estimated GFR > 60.0 BUN/Creatinine Ratio 21.4 Glucose 91 Calcium 7.9 L Total Bilirubin 0.3 AST 15 ALT 30 Alkaline Phosphatase 32 L Total Protein 4.7 L Albumin 2.6 L Globulin 2.1 Albumin/Globulin Ratio 1.2 Blood Type Antibody Screen Crossmatch (AHG) Assessment & Plan Plan: Plan: Very pleasant 74-year-old female admitted for upper GI bleed now status post EGD which shows antral gastric ulcers. Biopsies are pending for H pylori. Patient is status post 2 units packed red blood cells Plan: One. Continue hospitalization to continue to monitor due to patient being hemodynamically safe and stable. She is now improving with fluid resuscitation and packed red blood cell transfusion. We will continue with the IV Protonix continuous drip 80 mg every 10 hr. She will have full liquid diet and advance as tolerated. No more NSAIDs. We will hold her blood pressure medicine that she is on for her migraine headaches at that time because of her hypotension. We will check a hematocrit now and then repeat in the a.m.. Her questions are answered. Assessment 2. Anemia secondary to GI blood loss Plan: Status post 2 units packed red blood cells, recheck in a.m., Protonix Assessment 3. Migraine headache disorder Plan: No further NSAIDs. Will hold antihypertensives for this time. Will likely start tomorrow. Assessment 4. Hyperlipidemia Plan: Will restart lipid-lowering medication.
--- NOTE | 2017-11-02 13:31 | CM.DPC ---
DCP Continued/Correction: Per UR Review today, patient meets INPATIENT status. Order was written to reflect this: inpatient from time of admission, as OBS order was written by ER provider, not a valid order. Aislinn Kincaid RN
[2017-11-02 14:54] LABS: Hematocrit 27.2 % (36-46); Hemoglobin 9.6 g/dL (12.0-16.0)
--- NOTE | 2017-11-02 22:11 | PC.NURSE ---
Evening Shift Note A&O, VSS, 98% on RA. No complaints of pain or discomfort. Tolerating activity w/o dizzyness/lightheadedness. SBP in 80's during day shift, now 101/58. Tolerating general diet w/o N/V, BT positive, BM today and passing gas. Up w/ SBA to bathroom, using call light appropriately. NS @ 21mls/hr.
[2017-11-03] VITALS (7 sets, daily range): BP systolic 93–110; BP diastolic 41–69; PULSE 67–95; RESP 15–19; TEMP 36.6–36.9; O2SAT 94–97
[2017-11-03] MEDS: SODIUM CHLORIDE 0.9% 500 ML 21 ML IV (00:48)
[2017-11-03] MEDS: ACETAMINOPHEN 325 MG TABLET 650 MG PO (00:51)
[2017-11-03 05:29] LABS: Add Manual Diff / Slide Review NO; Basophils Percent Auto 0.4 % (0-2); Eosinophils Percent Auto 0.8 % (2-4); Hematocrit 30.1 % (36-46); Hemoglobin 10.6 g/dL (12.0-16.0); Lymphocytes Percent Auto 25.2 % (25-40); Mean Corpuscular HGB Conc 35.1 % (30-36); Mean Corpuscular Hemoglobin 31.2 PG (26-34); Mean Corpuscular Volume 88.9 fL (80-100); Monocytes Percent Auto 5.5 % (3-14); Neutrophils Absolute Auto 5300 /uL (3000-5900); Neutrophils Percent Auto 68.1 % (50-75); Platelet Count 138 X10^3/uL (150-400); Red Blood Cell Count 3.39 X10^6/uL (4.0-5.2); Red Cell Distribution Width 14.5 % (11.6-14.8); White Blood Cell Count 7.8 X10^3/uL (4.5-11.0)
--- NOTE | 2017-11-03 05:31 | PC.NURSE ---
Pt alert and oriented. pt denies dizziness and lightheadedness. pt drinking plenty of fluids. 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 BTX4. denies n/v. call light in reach.
[2017-11-03 05:40] LABS: BUN Creatinine Ratio 11.3 (6-22); Blood Urea Nitrogen 9 mg/dL (7-17); Calcium 8.7 mg/dL (8.4-10.2); Carbon Dioxide 27 mmol/L (22-32); Chloride 101 mmol/L (98-107); Estimated Glomerular Filt Rate > 60.0 mL/min (>60); Glucose 103 mg/dL (80-110); HEMOLYSIS < 15 (0-50); Potassium 3.9 mmol/L (3.4-5.1); Sodium 136 mmol/L (137-145)
--- NOTE | 2017-11-03 08:09 | PM.DS.1 ---
History of Present Illness Chief complaint: UGI Bleed, Hypotension Narrative: Tootie Quintero is a 72 year old female Tootie Quintero is a 72 year old female who presents to the emergency department today via private vehicle with complaints of exertional dyspnea, progressively worsening over the course of the last several days and black tarry stools and lightheadedness and dizziness. She has a history primarily of migraine headaches and hyperlipidemia and takes ibuprofen up to 3 to 4 times a week for migraine headaches. She noticed over the last 2 years she has had progressive worsening lightheadedness and then she developed upper abdominal pain that awakened her from sleep from Friday night and Friday night and this was associated with black tarry stools. She has approximately 2 black tarry stools the day had 1 this morning and that she describes as being small. She had some in the office on Friday to get an appointment to follow-up on her hyperlipidemia with Dr. Michelle and then because of the worsened the exertional dyspnea she phone the on-call physician and was instructed to go to the emergency room. She was found to have melena stools that were heme-positive and significant anemia and therefore she was admitted for further treatment and monitoring. She was last seen by Dr. Michelle approximately a year ago. Her past medical history: 1. Migraine headache disorder for which she sees Olivier Angeles. Last seen approximately 8 months ago. Two. Hyperlipidemia Past surgical history: One. 1948 she had a T and adenoidectomy Two. 1977 primary low transverse section 3. Benign breast tumor removal in 1983. 4. GHADA with BSO secondary to endometriosis 1983 Health related behavior: she does not smoke and has never been a smoker; occasional alcohol; she works out at [employer] 3 days a week and she walks frequently even on a daily basis Social history: She is and lives with her here in in a [place]. They have 1 daughter who is 40 years old who lives in [facility]. Patient is [place] but they moved to [place] to retire. Family history: Mom at age 84 with dementia and presumed acute CA Dad in 1965 from COPD and prostate cancer Sister at age 59 from non-Hodgkin's lymphoma Aunt with breast cancer Uncle with throat cancer Discharge Providers Date of admission: 11/02/17 12:44 Primary care physician: Ricardo Michelle MD Discharge provider: Alison Diaz MD Summary Discharge Diagnosis: Upper GI bleed with endoscopy done on 11/02/2017 which showed nonbleeding gastric antral ulcers. Patient transfused 2 units of packed red blood cells on 11/02/2017 with appropriate response. Feeling much improved on date of discharge. Hospital Course: Patient admitted. Patient transfused 2 units packed red blood cells on hospital day 2. Patient underwent EGD by Dr. Lemons on hospital day 2. And ulcers in the antrum of the stomach were found. They were not bleeding. She was not injected. Biopsies were taken and are pending at the time of discharge. Patient had hypotension on hospital day 2. And this is why she was transfused. She is feeling markedly better on hospital day 3. And was discharged home in stable condition. She will be discharged on her same medications but no NSAIDs and no Excedrin. She will be on Protonix 40 mg twice daily and we will await the H pylori biopsies. She will keep her appointment that she has with Dr. Michelle on Friday. Status at Discharge Cognitive/behavioral status at discharge: Normal Functional status at discharge: independent ambulation Time Spent with Patient Greater than 30 minutes Exam Vital Signs (past 8 hours): Vital Signs - 8 hr 11/03/17 00:50 11/03/17 02:50 11/03/17 05:00 Temperature 98.5 F Pulse Rate 72 Respiratory Rate 19 Blood Pressure 98/53 L 100/69 Pulse Oximetry 94 97 11/03/17 06:43 11/03/17 07:33 11/03/17 07:34 Temperature 97.8 F 98.1 F Pulse Rate 67 95 H Respiratory Rate 19 15 Blood Pressure 100/59 L 110/57 L Pulse Oximetry 95 97 97 Pulse Oximetry 97 Oxygen Delivery Method Room Air Oxygen Flow Rate 0 Narrative Exam Narrative: Patient alert and oriented x3 with stable vital signs HEENT: No mucosal lesions Neck: No adenopathy Chest: Clear to auscultation bilaterally Cor: Regular rate and rhythm without murmur Abdomen: Positive bowel sounds, soft, nontender, nondistended, no hepatosplenomegaly Extremities: No edema, pulses intact Skin no rash Objective Labs Result Diagrams: 11/03/17 05:18 11/03/17 05:18 Labs: Laboratory Results - last 24 hr 11/01/17 11/02/17 11/03/17 08:25 14:45 05:18 WBC 7.8 D RBC 3.39 L Hgb 9.6 L 10.6 L Hct 27.2 L 30.1 L MCV 88.9 D MCH 31.2 MCHC 35.1 RDW 14.5 Plt Count 138 L Neut % (Auto) 68.1 Lymph % (Auto) 25.2 [place] % (Auto) 5.5 Eos % (Auto) 0.8 L Baso % (Auto) 0.4 Neut # (Auto) 5300 Sodium Potassium Chloride Carbon Dioxide BUN Creatinine Estimated GFR BUN/Creatinine Ratio Glucose Calcium Blood Type O Positive Antibody Screen Negative Crossmatch (AHG) See Detail 11/03/17 05:18 WBC RBC Hgb Hct MCV MCH MCHC RDW Plt Count Neut % (Auto) Lymph % (Auto) [place] % (Auto) Eos % (Auto) Baso % (Auto) Neut # (Auto) Sodium 136 L Potassium 3.9 Chloride 101 Carbon Dioxide 27 BUN 9 Creatinine 0.80 Estimated GFR > 60.0 BUN/Creatinine Ratio 11.3 Glucose 103 Calcium 8.7 Blood Type Antibody Screen Crossmatch (AHG) Discharge Plan Discharge Plan Patient Disposition: Home, Self-Care Provider Discharge Instructions Diet: Diet as Tolerated Diet comment: NO NSAIDS; no spicey foods or tomato based foods Activity: as tolerated Discharge Data Primary Care Provider: Ricardo Michelle Attending Provider: Alison Diaz Admit Date/Time: 11/02/17 12:44
--- NOTE | 2017-11-03 08:14 | P.DS_ITS ---
History of Present Illness Chief complaint: UGI Bleed, Hypotension Narrative: Tootie Quintero is a 72 year old female Tootie Quintero is a 72 year old female who presents to the emergency department today via private vehicle with complaints of exertional dyspnea, progressively worsening over the course of the last several days and black tarry stools and lightheadedness and dizziness. She has a history primarily of migraine headaches and hyperlipidemia and takes ibuprofen up to 3 to 4 times a week for migraine headaches. She noticed over the last 2 years she has had progressive worsening lightheadedness and then she developed upper abdominal pain that awakened her from sleep from Friday night and Friday night and this was associated with black tarry stools. She has approximately 2 black tarry stools the day had 1 this morning and that she describes as being small. She had some in the office on Friday to get an appointment to follow-up on her hyperlipidemia with Dr. Michelle and then because of the worsened the exertional dyspnea she phone the on-call physician and was instructed to go to the emergency room. She was found to have melena stools that were heme-positive and significant anemia and therefore she was admitted for further treatment and monitoring. She was last seen by Dr. Michelle approximately a year ago. Her past medical history: 1. Migraine headache disorder for which she sees Olivier Angeles. Last seen approximately 8 months ago. Two. Hyperlipidemia Past surgical history: One. 1948 she had a T and adenoidectomy Two. 1977 primary low transverse section 3. Benign breast tumor removal in 1983. 4. GHADA with BSO secondary to endometriosis 1983 Health related behavior: she does not smoke and has never been a smoker; occasional alcohol; she works out at [employer] 3 days a week and she walks frequently even on a daily basis Social history: She is and lives with her here in in [place]. They have 1 daughter who is 40 years old who lives in [facility]. Patient is originally from [facility] but they moved to [place] to retire. Family history: Mom at age 84 with dementia and presumed acute RI Dad in 1965 from COPD and prostate cancer Sister at age 59 from non-Hodgkin's lymphoma Aunt with breast cancer Uncle with throat cancer Discharge Providers Date of admission: 11/02/17 12:44 Primary care physician: Ricardo Michelle MD Discharge provider: Alison Diaz MD Summary Discharge Diagnosis: Upper GI bleed with endoscopy done on 11/02/2017 which showed nonbleeding gastric antral ulcers. Patient transfused 2 units of packed red blood cells on 11/02/2017 with appropriate response. Feeling much improved on date of discharge. Hospital Course: Patient admitted. Patient transfused 2 units packed red blood cells on hospital day 2. Patient underwent EGD by Dr. Lemons on hospital day 2. And ulcers in the antrum of the stomach were found. They were not bleeding. She was not injected. Biopsies were taken and are pending at the time of discharge. Patient had hypotension on hospital day 2. And this is why she was transfused. She is feeling markedly better on hospital day 3. And was discharged home in stable condition. She will be discharged on her same medications but no NSAIDs and no Excedrin. She will be on Protonix 40 mg twice daily and we will await the H pylori biopsies. She will keep her appointment that she has with Dr. Michelle on Friday. Status at Discharge Cognitive/behavioral status at discharge: Normal Functional status at discharge: independent ambulation Time Spent with Patient Greater than 30 minutes Exam Vital Signs (past 8 hours): Vital Signs - 8 hr 3 11/03/17 00:50 11/03/17 02:50 11/03/17 05:00 Temperature 98.5 F Pulse Rate 72 Respiratory Rate 19 Blood Pressure 98/53 L 100/69 Pulse Oximetry 94 97 3 11/03/17 06:43 11/03/17 07:33 11/03/17 07:34 Temperature 97.8 F 98.1 F Pulse Rate 67 95 H Respiratory Rate 19 15 Blood Pressure 100/59 L 110/57 L Pulse Oximetry 95 97 97 Pulse Oximetry 97 Oxygen Delivery Method Room Air Oxygen Flow Rate 0 Narrative Exam Narrative: Patient alert and oriented x3 with stable vital signs HEENT: No mucosal lesions Neck: No adenopathy Chest: Clear to auscultation bilaterally Cor: Regular rate and rhythm without murmur Abdomen: Positive bowel sounds, soft, nontender, nondistended, no hepatosplenomegaly Extremities: No edema, pulses intact Skin no rash Objective Labs Result Diagrams: 11/03/17 05:18 11/03/17 05:18 Labs: Laboratory Results - last 24 hr 06/02/18 06/03/18 06/04/18 08:25 14:45 05:18 WBC 7.8 D RBC 3.39 L Hgb 9.6 L 10.6 L Hct 27.2 L 30.1 L MCV 88.9 D MCH 31.2 MCHC 35.1 RDW 14.5 Plt Count 138 L Neut % (Auto) 68.1 Lymph % (Auto) 25.2 [place] % (Auto) 5.5 Eos % (Auto) 0.8 L Baso % (Auto) 0.4 Neut # (Auto) 5300 Sodium Potassium Chloride Carbon Dioxide BUN Creatinine Estimated GFR BUN/Creatinine Ratio Glucose Calcium Blood Type O Positive Antibody Screen Negative Crossmatch (AHG) See Detail 11/03/17 05:18 WBC RBC Hgb Hct MCV MCH MCHC RDW Plt Count Neut % (Auto) Lymph % (Auto) [place] % (Auto) Eos % (Auto) Baso % (Auto) Neut # (Auto) Sodium 136 L Potassium 3.9 Chloride 101 Carbon Dioxide 27 BUN 9 Creatinine 0.80 Estimated GFR > 60.0 BUN/Creatinine Ratio 11.3 Glucose 103 Calcium 8.7 Blood Type Antibody Screen Crossmatch (AHG) Discharge Plan Discharge Plan Patient Disposition: Home, Self-Care Provider Discharge Instructions Diet: Diet as Tolerated Diet comment: NO NSAIDS; no spicey foods or tomato based foods Activity: as tolerated Discharge Data Primary Care Provider: Ricardo Michelle Attending Provider: Alison Diaz Admit Date/Time: 11/02/17 12:44
[2017-11-03] MEDS: FISH OIL 1,000 MG CAPSULE 1000 MG PO (08:58)
== END 2017-11-03 09:19 | disposition home or self-care (01) | DRG 378 ==
LOC: ED 10:04 → AC 10:26
PROVIDERS: Specialist; Admitting Provider Family Medicine; Emergency Provider Emergency Medicine; Family Provider Family Medicine; PCP Family Medicine; Visit Provider Family Medicine
PROC: 0DJ08ZZ Inspection of Upper Intestinal Tract, Via Natural or Artificial Opening Endoscopic (ICD-10-PCS; CPT 43235; principal; 2017-11-02 08:15)
DX: K25.4 Chronic or unspecified gastric ulcer with hemorrhage (principal); D62 Acute posthemorrhagic anemia; G43.909 Migraine, unspecified, not intractable, without status migrainosus; F41.9 Anxiety disorder, unspecified; E78.5 Hyperlipidemia, unspecified
CPT/HCPCS: 36415; 36430; 36592; 80048; 80053; 83690; 85014; 85018; 85025; 85610; 85730; 86850; 86900; 86901; 88305; 93005; 99283; 99284; G0378; P9016; A9270; C9113; J2250; J3010

== ENCOUNTER → 2017-11-27 13:35 | Outpatient (CLI) | payer MEDICARE, BC, SELFPAY ==
[2017-11-01 11:11] VITALS: BMI 20.6
[2017-11-20 10:10] VITALS: BMI 20.6
== END ==
PROVIDERS: Family Provider Family Medicine; PCP Family Medicine; Visit Provider Family Medicine
DX: M85.852 Other specified disorders of bone density and structure, left thigh (principal); Z78.0 Asymptomatic menopausal state; Z90.722 Acquired absence of ovaries, bilateral
CPT/HCPCS: 77080

== ENCOUNTER 2018-02-06 06:41 | Day surgery (SDC) | payer MEDICARE, BC, SELFPAY ==
[2017-11-20 10:10] VITALS: BMI 20.6
--- NOTE | 2018-02-06 | PATH_ITS ---
[facility] Accession Number: [id number] . 01 Material submitted: . PRIOR ULCER BED . 02 Diagnosis: Specimen Designated Biopsy Prior Ulcer Bed: Gastric antral mucosa with focal minimal mucosal fibrosis. Negative for significant inflammation, dysplasia and malignancy. Negative for intestinal metaplasia. Negative for evidence of Helicobacter on H/E stain. MRV/02/09/2018 . 02 Electronically signed: . Artemio Jauregui MD, Pathologist NPI- [id number] . 01 Gross description: . Received one formalin-filled container, labeled with the patient's name and labeled prior ulcer bed, are three 0.1 to 0.2 cm portions of tissue entirely submitted in one cassette. (DC:o [id number]) . . /OZO . 02 Pathologist provided ICD-10: Z87.11 . 02 CPT . 516536 Performed at: 01 [facility] [address] [id number] MD Nilton Canchola MD Phone: [phone] Performed at: 02 [facility] [address] [place], [place] [id number] MD Michael Zarate MD Phone: [phone]
[2018-02-06 07:18] VITALS: BP 112/64; PULSE 84; RESP 12; TEMP 36.2; O2SAT 97; BMI 19.8
--- NOTE | 2018-02-06 08:10 | PM.HP.1 ---
History of Present Illness Date Patient Seen: 02/06/18 Time Patient Seen: 08:10 Chief complaint: [id number] EGD COLONOSCOPY Narrative: Patient is a woman who is 10 years out from her last colonoscopy. No history of polyps or colon cancer in her family. The patient had a gastric ulcer treated and she is here for an EGD as well as a colonoscopy. The EGD is to confirm healing. Patient History Medical History Gastric peptic ulcer (Acute) Anxiety as acute reaction to exceptional stress (Chronic) Hypercholesterolemia (Chronic) Migraine headache (Chronic) History of benign breast biopsy (Resolved) Surgical History History of (Resolved) History of abdominal hysterectomy (Resolved) History of right breast biopsy (Resolved) History of tonsillectomy and adenoidectomy (Resolved) Status post cataract extraction of both eyes with insertion of intraocular lens (Resolved) Family & Social History Family History: Reviewed 02/06/18 by Balta Lemons MD Social History: household members spouse Tobacco & Substance use: Smoking Status Never smoker alcohol intake current alcohol intake frequency a few times a month Substance Use Type does not use Meds Home Medications Medication Instructions Recorded Confirmed Type alprazolam 0.25 mg PO PRN PRN #0 04/09/17 12/02/17 History omega 9-ijc-mri-fish oil [Fish Oil] 1,000 mg PO DAILY #0 04/09/17 12/02/17 History pantoprazole 40 mg tablet,delayed 40 mg PO BID 12/02/17 12/02/17 History release simvastatin 20 mg tablet 20 mg PO QPM 12/02/17 12/02/17 History sumatriptan 100 mg tablet 100 mg PO .COMPLEX PRN #12 tab 12/18/17 Rx Allergies Allergy/AdvReac Type Severity Reaction Status Date / Time No Known Drug Allergies Allergy Verified 12/17/17 14:04 Review of Systems Review of Systems All systems reviewed & are unremarkable except as noted in HPI and below Respiratory Comments: Has a chronic dry cough Exam Vital Signs (past 8 hours): - 02/06/18 07:18 Temperature 97.2 F L Pulse Rate 84 Respiratory Rate 12 Blood Pressure 112/64 Pulse Oximetry 97 Oxygen Delivery Method Room Air Narrative Exam Narrative: Operative thin woman in no apparent distress. Lungs are clear to auscultation without rales or rhonchi. There is some upper respiratory noise noted. Heart regular rate and rhythm without murmur gallop. Abdomen is soft nontender without mass. The patient is alert and oriented x3. Assessment & Plan Plan: Assessment/Plan Narrative: Patient here for an EGD to confirm healing of a gastric ulcer. She is also here for screening colonoscopy. I have discussed the procedure and the rationale with the patient including risks of bleeding, perforation which would necessitate a major operation, failure to find remove all lesions and the potential to tattoo. They appeared to understand and wished to proceed.
--- NOTE | 2018-02-06 08:13 | PM.PREOP ---
Pre-operative Note Interval Note Pre-op Check: Yes History & Physical exam performed today by Physician Changes: No ASA Class (for procedural sedation): I
[2018-02-06] MEDS: SODIUM CHLORIDE 0.9% 1,000 ML 200 ML IV (08:18)
[2018-02-06] MEDS: TETRACAINE/BENZOCAINE/BUTAMBEN (CETACAINE) BOTTLE 1 SPRAY TOP (08:28)
[2018-02-06] MEDS: LIDOCAINE 4% SOLN 50 ML 20 ML TOP (08:31)
[2018-02-06] MEDS: fentaNYL 250 MCG/5 ML INJ IV (08:32)
[2018-02-06] MEDS: MIDAZOLAM 5 MG/5 ML VIAL IV (08:32)
--- NOTE | 2018-02-06 09:02 | PM.OP.ENDO ---
Operative Date/Time/Diagnoses Date of procedure: 02/06/18 Time of procedure: 09:03 Pre-op diagnosis: History of gastric ulcer. Screening for colon cancer. Post-op diagnosis: same (Healed gastric ulcer. Internal and external hemorrhoids. Sigmoid diverticulosis.) Procedure & Clinicians Study performed: EGD with cold biopsy. Colonoscopy. Same procedure as scheduled: Yes Indications: Diagnostic. Screening. Surgeon: Balta Lemons Procedure Notes SCOAP/Timeout: Perform Procedure in detail: The patient had topical anesthetic applied to oropharynx. She was placed in left lateral decubitus position and underwent IV sedation directed by the surgeon consisting of fentanyl and Versed. A bite block was inserted and the scope was advanced through it into the esophagus. The esophagus was unremarkable. GE junction was noted at 40 cm from the incisors. The stomach insufflated well. There were no lesions seen in the body, antrum or at the incisura. The area of the ulcer was visible a but appeared to be healed with some scarring. The pyloric channel was [edematous but patent]. The duodenum was unremarkable to the 3rd part. The scope was brought back into the stomach and retroflexed. The proximal stomach[normal in appearance]. The scope was straightened and brought out through the esophagus again. No lesions were seen. The scope was removed and the patient tolerated the procedure well. The patient was repositioned. The patient was placed in the left lateral decubitus position and underwent IV sedation directed by the surgeon consisting of fentanyl and Versed. Digital exam was[remarkable for extensive external hemorrhoids and tags.]. The scope was inserted and advanced through the rectum into the sigmoid, descending, transverse, and ascending colon.[There was some tortuosity and diverticulosis in the sigmoid colon]. The cecum was reached identified by the ileocecal valve and the appendiceal opening. The ileocecal valve was[successfully] cannulated. The terminal ileum was normal in appearance. The scope was gradually brought out. No Polyps were found. The scope ultimately was retroflexed in the rectum. The appearance was[remarkable for internal hemorrhoids without ulceration.]. The scope was removed and the patient tolerated the procedure well Findings: diverticulosis (Sigmoid), gastric ulcer (Healed) and internal hemorrhoids (With external hemorrhoids) Recommendations: Colonscopy in 10 years and Continue medication(s) (But can decrease her proton pump inhibitor to once a day.) Plan for aftercare: As-needed Follow up: as needed Disposition: PACU
[2018-02-06 09:06] VITALS: BP 82/45; PULSE 60; RESP 24; TEMP 36.4; O2SAT 93
[2018-02-06 09:11] VITALS: BP 99/57; PULSE 60; RESP 12; O2SAT 95
[2018-02-06 09:16] VITALS: BP 96/59; PULSE 65; RESP 16; O2SAT 98
[2018-02-06 09:21] VITALS: BP 107/55; PULSE 65; RESP 16; TEMP 36.6; O2SAT 97
[2018-02-06 09:38] VITALS: BP 91/53; PULSE 60; RESP 18; TEMP 36.1; O2SAT 98
--- NOTE | 2018-02-06 09:52 | SUR.PHASEII ---
pt had coffee and juice and a snack. stated she is ready to go home. helped get her dressed. Pt d/jorge in wheelchair. When asked if we could do anything better she stated no everything was great. pt awake and alert. Denies nausea and pain .
== END 2018-02-06 09:42 | disposition home or self-care (01) ==
PROVIDERS: Family Provider Family Medicine; PCP Family Medicine; Visit Provider Specialist
PROC: 0DJD8ZZ Inspection of Lower Intestinal Tract, Via Natural or Artificial Opening Endoscopic (ICD-10-PCS; CPT 45378; 2018-02-06 07:45)
PROC: 0DJ08ZZ Inspection of Upper Intestinal Tract, Via Natural or Artificial Opening Endoscopic (ICD-10-PCS; CPT 43235; 2018-02-06 07:45)
DX: Z12.11 Encounter for screening for malignant neoplasm of colon (principal); Z87.11 Personal history of peptic ulcer disease; K57.30 Diverticulosis of large intestine without perforation or abscess without bleeding; K64.8 Other hemorrhoids; K64.4 Residual hemorrhoidal skin tags; F41.9 Anxiety disorder, unspecified; E78.00 Pure hypercholesterolemia, unspecified
CPT/HCPCS: 43239; G0121; 88305; J2250; J3010

== ENCOUNTER → 2018-05-16 09:36 | Outpatient (CLI) | payer MEDICARE, BC, SELFPAY ==
[2017-11-20 10:10] VITALS: BMI 20.6
--- NOTE | 2018-05-16 | DI.MG.S_ITS ---
BILATERAL DIGITAL SCREENING MAMMOGRAM 3D/2D WITH CAD: 05/16/2018 CLINICAL: Routine screening. Family history of breast cancer. Comparison is made to exams dated: 04/03/2017 mammogram, 09/28/2015 mammogram, and 11/22/2013 mammogram - [facility]. The tissue of both breasts is extremely dense, which lowers the sensitivity of mammography. Current study was also evaluated with a Computer Aided Detection (CAD) system. No significant masses, calcifications, or other findings are seen in either breast. There has been no significant interval change. IMPRESSION: NEGATIVE There is no mammographic evidence of malignancy. A 1 year screening mammogram is recommended. This exam was interpreted at Station ID: [id number]. NOTE: For mammograms, a report in lay terms will be sent to the patient. Approximately 15% of breast malignancies will not be visualized mammographically. In the management of a palpable breast mass, a negative mammogram must not discourage biopsy of a clinically suspicious lesion. Electronically Signed By: Karen suggs/emery:05/18/2018 15:44:43 letter sent: Normal Exam ACR BI-RADS Category 1: Negative 3341F
== END ==
PROVIDERS: PCP Family Medicine; Visit Provider Family Medicine
DX: Z12.31 Encounter for screening mammogram for malignant neoplasm of breast (principal); Z80.3 Family history of malignant neoplasm of breast
CPT/HCPCS: 77063; 77067

== ENCOUNTER → 2018-11-23 14:20 | Outpatient (CLI) | payer MEDICARE, BC, SELFPAY ==
[2017-11-20 10:10] VITALS: BMI 20.6
--- NOTE | 2018-11-23 | DI.MRI.S_ITS ---
PROCEDURE: MR HEAD/BRAIN WO CON INDICATIONS: MIGRAINE TECHNIQUE: Noncontrast axial T1 spin echo, axial T2 fast spin echo, sagittal and axial FLAIR, coronal T2 fast spin echo, axial gradient echo, axial diffusion and ADC through the brain. COMPARISON: None. FINDINGS: Image quality: Excellent. CSF Spaces: Basal cisterns are patent. No extra-axial fluid collections. Ventricles are normal in size and shape. Brain: No intracranial masses or hemorrhage. Colon/white matter interface is normal. Brainstem appears normal. Diffusion-weighted images demonstrate no acute ischemic insult. No chronic ischemic insults. Normal intravascular flow voids are present. Skull and face: Calvarium has normal marrow signal. Orbits appear normal. Sinuses: Sinuses and mastoids are clear. IMPRESSION: Excellent appearance of the brain parenchyma, no source of current headache is found. There is no suspicion for presence of aneurysm, inflammation or neoplasm. Dictated by: Niall Harp M.D. on 11/23/2018 at 15:19 Approved by: Niall Harp M.D. on 11/23/2018 at 15:20
== END ==
PROVIDERS: PCP Family Medicine; Visit Provider Internal Medicine
DX: G43.909 Migraine, unspecified, not intractable, without status migrainosus (principal)
CPT/HCPCS: 70551

== ENCOUNTER → 2018-11-27 14:10 | Outpatient (CLI) | payer MEDICARE, BC, SELFPAY ==
[2017-11-20 10:10] VITALS: BMI 20.6
--- NOTE | 2018-11-27 | DI.RAD.S_ITS ---
PROCEDURE: XR CERVICAL SPINE 2V OR 3V INDICATIONS: NECK PAIN TECHNIQUE: 3 view(s) of the cervical spine were acquired. COMPARISON: None. FINDINGS: Bones: No fractures or dislocations to the T1 level. The lateral masses of C1 appear intact on the odontoid view. No suspicious bony lesions. There is mild to moderate degenerative disc disease without significant projecting osteophytes along the cervical spine and the disc height reduction is best seen from C4-C7. Subluxation is not associated. Left greater than right facet osteoarthritis through these areas. Soft tissues: No prevertebral soft tissue swelling. IMPRESSION: No trauma. Mild to moderate degenerative disc disease from C4 through C7 with potential for spinal and foraminal stenosis by appearance. Facet osteoarthritis on the frontal projection appears slightly greater on the left than the right. Dictated by: Niall Harp M.D. on 11/27/2018 at 16:17 Approved by: Niall Harp M.D. on 11/27/2018 at 16:18
== END ==
PROVIDERS: PCP Family Medicine; Visit Provider Family Medicine
DX: M50.321 Other cervical disc degeneration at C4-C5 level (principal); M47.812 Spondylosis without myelopathy or radiculopathy, cervical region
CPT/HCPCS: 72040

== ENCOUNTER → 2018-12-18 13:29 | Outpatient (CLI) | payer MEDICARE, BC, SELFPAY ==
[2017-11-20 10:10] VITALS: BMI 20.6
--- NOTE | 2018-12-18 | DI.MRI.S_ITS ---
PROCEDURE: MR CERVICAL SPINE WO CON INDICATIONS: Neck pain radiating into left shoulder TECHNIQUE: Noncontrast sagittal T1 spin echo and T2 fast spin echo, sagittal STIR, foraminal oblique sagittal T2 fast spin echo, and axial gradient echo or T2 fast spin echo through the cervical spine. COMPARISON: [facility], CR, XR CERVICAL SPINE 2V OR 3V, 11/27/2018, 14:19. FINDINGS: Image quality: Excellent. Alignment and Curvature: There is normal bony alignment. Bone Marrow: Marrow demonstrates normal overall signal. Spinal Cord: Visualized spinal cord has normal size and signal. No cerebellar tonsillar herniation. Paraspinous Soft Tissues: No paravertebral masses. Prevertebral soft tissues are normal in thickness. C2-C3: Preserved disc height. Mild disc desiccation. There is no significant posterior disc bulge. Mild bilateral facet arthropathy. The central canal is patent. No foraminal stenosis. No definitive nerve root impingement. C3-C4: Preserved disc height. Mild disc desiccation. There is mild posterior disc bulge. Mild bilateral facet arthropathy. The central canal is patent. Mild bilateral foraminal stenosis. No definitive nerve root impingement. C4-C5: Mild loss of disc height and disc desiccation. There is diffuse posterior disc bulge and bilateral uncovertebral hypertrophy. Mild bilateral facet arthropathy. The central canal is mildly narrowed. Dklgsgio-vo-qzdmgj bilateral foraminal stenosis. Possible nerve root impingement. C5-C6: Moderate loss of disc height and disc desiccation. There is diffuse posterior disc bulge and bilateral uncovertebral hypertrophy. Mild bilateral facet arthropathy. The central canal is mildly narrowed. Mild to moderate bilateral foraminal stenosis. Possible nerve root impingement. C6-C7: Moderate loss of disc height and disc desiccation. There is diffuse posterior disc bulge and large left uncovertebral osteophyte. Mild bilateral facet arthropathy. The central canal is mildly narrowed. Severe left and mild right foraminal stenosis. Likely left nerve root impingement. C7-T1: Normal appearance. IMPRESSION: 1. Multilevel degenerative disc disease and facet arthropathy as described. 2. Mild central canal stenosis at C4-C5, C5-C6 and C6-C7. 3. Multilevel foraminal stenosis as described, severe C6-C7 on the left, and [id number]-[id number] at C4-C5 bilaterally. Dictated by: Leyla Santoro M.D. on 12/18/2018 at 16:43 Approved by: Leyla Santoro M.D. on 12/18/2018 at 16:52
== END ==
PROVIDERS: PCP Family Medicine; Referring Provider Physical Therapist; Visit Provider Family Medicine
DX: M50.30 Other cervical disc degeneration, unspecified cervical region (principal); M54.2 Cervicalgia; M48.02 Spinal stenosis, cervical region
CPT/HCPCS: 72141

== ENCOUNTER → 2019-01-14 12:45 | Outpatient (CLI) | payer MEDICARE, BC, SELFPAY ==
[2017-11-20 10:10] VITALS: BMI 20.6
== END ==
PROVIDERS: PCP Family Medicine; Visit Provider Family Medicine
DX: M54.2 Cervicalgia (principal)
CPT/HCPCS: 95885; 95886; 95911

== ENCOUNTER → 2019-07-05 07:48 | Outpatient (CLI) | payer MEDICARE, BC, SELFPAY ==
[2017-11-20 10:10] VITALS: BMI 20.6
--- NOTE | 2019-07-05 | DI.MG.S_ITS ---
BILATERAL DIGITAL SCREENING MAMMOGRAM 3D/2D WITH CAD: 07/05/2019 CLINICAL: Routine screening. Family history of breast cancer. Comparison is made to exams dated: 05/16/2018 mammogram, 04/03/2017 mammogram, and 09/28/2015 mammogram - [facility]. The tissue of both breasts is heterogeneously dense. This may lower the sensitivity of mammography. Current study was also evaluated with a Computer Aided Detection (CAD) system. No significant masses, calcifications, or other findings are seen in either breast. IMPRESSION: NEGATIVE There is no mammographic evidence of malignancy. A 1 year screening mammogram is recommended. This exam was interpreted at Station ID: [id number]. NOTE: For mammograms, a report in lay terms will be sent to the patient. Approximately 15% of breast malignancies will not be visualized mammographically. In the management of a palpable breast mass, a negative mammogram must not discourage biopsy of a clinically suspicious lesion. Electronically Signed By: Karen suggs/emery:07/05/2019 09:08:30 letter sent: Normal Exam ACR BI-RADS Category 1: Negative 3341F
== END ==
PROVIDERS: PCP Family Medicine; Referring Provider Family Medicine; Visit Provider Family Medicine
DX: Z12.31 Encounter for screening mammogram for malignant neoplasm of breast (principal); Z80.3 Family history of malignant neoplasm of breast
CPT/HCPCS: 77063; 77067

== ENCOUNTER → 2020-03-23 15:03 | Outpatient (CLI) | payer MEDICARE, BC, SELFPAY ==
[2017-11-20 10:10] VITALS: BMI 20.6
== END ==
PROVIDERS: PCP Family Medicine; Referring Provider Family Medicine; Visit Provider Family Medicine
DX: M81.0 Age-related osteoporosis without current pathological fracture (principal); Z78.0 Asymptomatic menopausal state; Z90.722 Acquired absence of ovaries, bilateral
CPT/HCPCS: 77080

== ENCOUNTER → 2020-04-06 14:58 | Outpatient (CLI) | payer MEDICARE, BC, SELFPAY ==
[2017-11-20 10:10] VITALS: BMI 20.6
--- NOTE | 2020-04-06 | DI.RAD.S_ITS ---
PROCEDURE: XR HIP W PEL IF DONE RT 2V INDICATIONS: RIGHT HIP PAIN TECHNIQUE: AP pelvis with lateral view(s) of the right hip(s). COMPARISON: None. FINDINGS: Bones: Possible nondisplaced right superior pubic remote fracture. No dislocations. Pelvic ring appears intact. No suspicious bony lesions. Mild symmetric hip and sacroiliac joint degeneration. Soft tissues: The visualized bowel gas pattern is normal. Multiple calcific densities in the right pelvis are likely pelvic phleboliths. IMPRESSION: 1. Possible nondisplaced right superior pubic remote fracture. 2. 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 Dictated by: Leyla Santoro M.D. on 04/06/2020 at 17:15 Approved by: Leyla Santoro M.D. on 04/06/2020 at 17:18
--- NOTE | 2020-04-06 | DI.RAD.S_ITS ---
PROCEDURE: XR LUMBAR SPINE 2-3V INDICATIONS: RIGHT HIP PAIN TECHNIQUE: 3 views of the lumbar spine were acquired. COMPARISON: None. FINDINGS: Bones: 5 [id number]-[id number]-[id number] vertebrae are present. There is grade 1 anterolisthesis of L3 on L4. No vertebral body compression fractures. No suspicious bony lesions. Mild degenerative disc disease at L2-L3, L3-L4 and L4-L5. Moderate facet hypertrophy at L3-L4, L4-L5 and L5-S1. Soft tissues: Overlying bowel gas pattern is normal. No suspicious soft tissue calcifications. IMPRESSION: Degenerative disc and facet disease in lumbar spine as described. Dictated by: Leyla Santoro M.D. on 04/06/2020 at 16:43 Approved by: Leyla Santoro M.D. on 04/06/2020 at 16:45
== END ==
PROVIDERS: PCP Family Medicine; Referring Provider Family Medicine; Visit Provider Family Medicine
DX: M25.551 Pain in right hip (principal); M16.11 Unilateral primary osteoarthritis, right hip; M51.36 Other intervertebral disc degeneration, lumbar region; M51.37 Other intervertebral disc degeneration, lumbosacral region; M46.1 Sacroiliitis, not elsewhere classified; M43.16 Spondylolisthesis, lumbar region
CPT/HCPCS: 72100; 73502

== ENCOUNTER → 2020-04-20 15:35 | Outpatient (CLI) | payer MEDICARE, BC, SELFPAY ==
[2017-11-20 10:10] VITALS: BMI 20.6
--- NOTE | 2020-04-20 | DI.MRI.S_ITS ---
PROCEDURE: MR LUMBAR SPINE WO CON INDICATIONS: Radiculopathy, lumbar region TECHNIQUE: Noncontrast sagittal T1 spin echo and T2 fast echo, sagittal STIR, axial T1 and T2 fast spin echo through the lumbar spine. In cases with scoliosis, additional coronal T2 fast spin echo may be performed. COMPARISON: None. FINDINGS: Image quality: Excellent. Alignment and Curvature: There is mild grade 1 anterolisthesis seen at the L3-L4 level. Mild levoconvex scoliotic curvature is noted. Bone Marrow: Marrow is of normal overall signal. No acute vertebral body compression fractures. Spinal Cord: Conus medullaris terminates at the T12-L1 level. Visualized cord demonstrates normal signal and size. Paraspinous Soft Tissues: No paravertebral masses. T12-L1: Normal appearance. L1-L2: Normal appearance. L2-L3: Moderate loss of disc height is seen. Loss of disc signal is seen. Moderate generalized disc bulge is seen. There is a focal annular fissure seen posteriorly. Moderate facet joint hypertrophy is seen. Minimal to mild bilateral neural foraminal narrowing can be seen. Mild to moderate central canal narrowing is seen. L3-L4: Moderate loss of disc height is seen. Loss of disc signal is seen. Moderate disc bulge is seen, which is eccentric to the right side. There is a central disc protrusion. Moderate to prominent facet hypertrophy is seen. Associated hypertrophy of the ligamentum flavum can be seen. There is moderate left-sided and mild right-sided neural foraminal narrowing seen. Moderate to severe central canal narrowing is seen. L4-L5: Mild loss of disc height is seen. Loss of disc signal is seen. Moderate disc bulge is seen, which is eccentric to the right. A central disc protrusion is also seen. At least moderate facet hypertrophy is seen. Associated hypertrophy of the ligamentum flavum can be seen. At least moderate bilateral neural foraminal narrowing is seen. There is a degree of compression seen upon the exiting nerve roots. Moderate to severe central canal narrowing is seen. L5-S1: Moderate loss of disc height is seen. Loss of disc signal is seen. Associated hypertrophy of the ligamentum flavum can be seen. Mild generalized disc bulge is seen. Mild facet joint hypertrophy is seen. There is mild right-sided and no significant left-sided neural foraminal narrowing seen. Mild central canal narrowing is seen. IMPRESSION: Lower lumbar spine degenerative changes are seen, which are worst at the L4-L5 level. Dictated by: Lino Owen M.D. on 04/20/2020 at 16:33 Approved by: Lino Owen M.D. on 04/20/2020 at 16:38
== END ==
PROVIDERS: PCP Family Medicine; Referring Provider Family Medicine; Visit Provider Family Medicine
DX: M54.16 Radiculopathy, lumbar region (principal); M51.36 Other intervertebral disc degeneration, lumbar region
CPT/HCPCS: 72148

== ENCOUNTER → 2020-09-26 11:35 | Outpatient (CLI) | payer MEDICARE, BC, SELFPAY ==
[2017-11-20 10:10] VITALS: BMI 20.6
--- NOTE | 2020-09-26 | DI.MG.S_ITS ---
BILATERAL DIGITAL SCREENING MAMMOGRAM 3D/2D WITH CAD: 09/26/2020 CLINICAL: Routine screening. Family history of breast cancer. Comparison is made to exams dated: 07/05/2019 mammogram, 05/16/2018 mammogram, 04/14/2017 mammogram, and 04/03/2017 mammogram - [facility]. The tissue of both breasts is extremely dense, which lowers the sensitivity of mammography. Current study was also evaluated with a Computer Aided Detection (CAD) system. No significant masses, calcifications, or other findings are seen in either breast. There has been no significant interval change. IMPRESSION: NEGATIVE There is no mammographic evidence of malignancy. A 1 year screening mammogram is recommended. This exam was interpreted at Station ID: [id number]. NOTE: For mammograms, a report in lay terms will be sent to the patient. Approximately 15% of breast malignancies will not be visualized mammographically. In the management of a palpable breast mass, a negative mammogram must not discourage biopsy of a clinically suspicious lesion. Electronically Signed By: Nilton love/emery:09/26/2020 12:11:12 letter sent: Normal Exam ACR BI-RADS Category 1: Negative 3341F
== END ==
PROVIDERS: PCP Family Medicine; Referring Provider Family Medicine; Visit Provider Family Medicine
DX: Z12.31 Encounter for screening mammogram for malignant neoplasm of breast (principal)
CPT/HCPCS: 77063; 77067

== ENCOUNTER → 2021-03-19 15:38 | Outpatient (CLI) | payer MEDICARE, BC, SELFPAY ==
[2017-11-20 10:10] VITALS: BMI 20.6
--- NOTE | 2021-03-19 | DI.RAD.S_ITS ---
PROCEDURE: XR LUMBAR SPINE 2-3V INDICATIONS: RADICULOPATHY/DORSALGIA TECHNIQUE: 2 views of the lumbar spine were acquired. COMPARISON: [facility], , XR LUMBAR SPINE 2-3V, 04/06/2020, 14:13. FINDINGS: Bones: 5 [id number]-[id number] vertebrae are present. Minimal grade 1 anterolisthesis at L3-4 and L4-5. Facet arthrosis, most prominent at L5-S1 No vertebral body compression fractures. No suspicious bony lesions. Soft tissues: Overlying bowel gas pattern is normal. No suspicious soft tissue calcifications. IMPRESSION: No acute osseous abnormality. Dictated by: Phan Barrera M.D. on 03/19/2021 at 16:14 Approved by: Phan Barrera M.D. on 03/19/2021 at 16:16
== END ==
PROVIDERS: PCP Family Medicine; Referring Provider Family Medicine; Visit Provider Family Medicine
DX: M54.9 Dorsalgia, unspecified (principal); M47.27 Other spondylosis with radiculopathy, lumbosacral region
CPT/HCPCS: 72100

== ENCOUNTER → 2021-03-20 15:39 | Outpatient (CLI) | payer MEDICARE, BC, SELFPAY ==
[2017-11-20 10:10] VITALS: BMI 20.6
--- NOTE | 2021-03-20 | DI.MRI.S_ITS ---
PROCEDURE: MR LUMBAR SPINE WO CON INDICATIONS: Radiculopathy, lumbar region TECHNIQUE: Noncontrast sagittal T1 spin echo and T2 fast echo, sagittal STIR, axial T1 and T2 fast spin echo through the lumbar spine. In cases with scoliosis, additional coronal T2 fast spin echo may be performed. COMPARISON: [facility], MR, MR LUMBAR SPINE WO CON, 04/20/2020, 15:49. FINDINGS: Image quality: Excellent. Alignment and Curvature: There is mild L3-L4 and L4-L5 anterolisthesis secondary to facet hypertrophy. Bone Marrow: Reactive endplate changes noted adjacent the L4-L5 disc. No acute vertebral body compression fractures. Spinal Cord: Conus medullaris terminates at the L1 level. Visualized cord demonstrates normal signal and size. Paraspinous Soft Tissues: No paravertebral masses. T12-L1: Normal appearance. L1-L2: Normal appearance. L2-L3: Loss of disc signal and height. Mild, diffuse disc bulge. Mild bilateral facet hypertrophy. Mild narrowing of the central canal. Mild bilateral neural foraminal narrowing. No neural compression. Fissure noted in the posterior annulus. L3-L4: Loss of disc signal and height. Mild to moderate diffuse disc bulge. Small central disc protrusion. Severe bilateral facet hypertrophy. Severe narrowing of the central canal with compression of the nerve roots of the cauda equina. Mild bilateral neural foraminal narrowing. Fissure noted in the posterior annulus. L4-L5: Loss of disc signal and height. Moderate, diffuse disc bulge. Severe bilateral facet hypertrophy. Severe narrowing of the central canal with compression of the nerve roots of the cauda equina. Mild right moderate left neural foraminal narrowing. L5-S1: Loss of disc signal. Mild, diffuse disc bulge. Mild bilateral facet hypertrophy. No central stenosis. No neural foraminal narrowing. No neural compression. Fissure noted in the posterior annulus. IMPRESSION: 1. Grade 1 L3-L4 and L4-L5 degenerative spondylolisthesis. 2. Multilevel degenerative disc disease. 3. Multilevel facet arthropathy. 4. Severe L3-L4 and L4-L5 central canal narrowing with compression of the nerve roots of the cauda equina. 5. No severe neural foraminal narrowing. Dictated by: Becca Ko MD, PhD on 03/20/2021 at 17:21 Approved by: Becca Ko MD, PhD on 03/20/2021 at 17:24
== END ==
PROVIDERS: PCP Family Medicine; Referring Provider Family Medicine; Visit Provider Family Medicine
DX: M43.16 Spondylolisthesis, lumbar region (principal); M51.16 Intervertebral disc disorders with radiculopathy, lumbar region; M51.17 Intervertebral disc disorders with radiculopathy, lumbosacral region; M47.26 Other spondylosis with radiculopathy, lumbar region; M47.27 Other spondylosis with radiculopathy, lumbosacral region; M48.061 Spinal stenosis, lumbar region without neurogenic claudication
CPT/HCPCS: 72148

== ENCOUNTER → 2021-05-21 10:01 | Outpatient (CLI) | payer MEDICARE, BC, SELFPAY ==
[2017-11-20 10:10] VITALS: BMI 20.6
[2021-05-21 13:18] LABS: Appearance Urine UA SL CLOUDY; Bilirubin Urine UA NEGATIVE (NEGATIVE); Color Urine UA YELLOW; Glucose Urine UA NEGATIVE (Negative); Ketones Urine UA NEGATIVE (NEGATIVE); Leukocyte Esterase Urine UA TRACE (NEGATIVE); Nitrite Urine UA NEGATIVE (Negative); Occult Blood Urine UA 1+ (Negative); Protein Urine UA NEGATIVE (Negative); Specific Gravity Urine UA 1.015 (1.000-1.035); Urobilinogen Urine UA 0.2 E.U./dL (0.2)
[2021-05-21 13:38] LABS: Bacteria Urine None Seen; Culture Indicated Urine Cult Not Indicated; RBC Urine 0-1/HPF (0-5/HPF); Squamous Epithelial Cell Urine None Seen (0-5/HPF); WBC Urine None Seen (0-5/HPF)
== END ==
PROVIDERS: PCP Family Medicine; Referring Provider Neurological Surgery; Visit Provider Neurological Surgery
DX: Z01.812 Encounter for preprocedural laboratory examination (principal)
CPT/HCPCS: 81001

== ENCOUNTER → 2021-07-27 13:45 | Outpatient (CLI) | payer MEDICARE, BC, SELFPAY ==
[2017-11-20 10:10] VITALS: BMI 20.6
--- NOTE | 2021-07-27 | DI.RAD.S_ITS ---
PROCEDURE: XR LUMBAR SPINE 1V INDICATIONS: LOW BACK PAIN TECHNIQUE: 3 views of the lumbar spine were acquired. COMPARISON: [facility], CR, XR LUMBAR SPINE 2-3V, 04/06/2020, 14:13. [facility], MR, MR LUMBAR SPINE WO CON, 04/20/2020, 15:49. [facility], MR, MR LUMBAR SPINE WO CON, 03/20/2021, 15:53. [facility], CR, XR LUMBAR SPINE 2-3V, 03/19/2021, 15:48. FINDINGS: Bones: 5 lzp-wzz-audhbiz vertebrae are present. There is a spacer between the L3 and L4 spinous processes. There is grade 1 anterolisthesis of L3 on L4. No vertebral body compression fractures. No suspicious bony lesions. Moderate degenerative disc disease at L2-L3 L3-L4 and L4-L5. Severe facet facet arthropathy at L 3-L4, L4-L5 and L5-S1. Soft tissues: Overlying bowel gas pattern is normal. No suspicious soft tissue calcifications. IMPRESSION: 1. Prosthesis between the L3 and L4 spinous processes. 2. Degenerative disc and facet disease in lumbar spine. Dictated by: Leyla Santoro M.D. on 07/27/2021 at 17:52 Approved by: Leyla Santoro M.D. on 07/27/2021 at 17:57
== END ==
PROVIDERS: PCP Family Medicine; Referring Provider Neurological Surgery; Visit Provider Physician Assistant Medical
DX: M51.36 Other intervertebral disc degeneration, lumbar region (principal); M47.816 Spondylosis without myelopathy or radiculopathy, lumbar region; M47.817 Spondylosis without myelopathy or radiculopathy, lumbosacral region
CPT/HCPCS: 72020

== ENCOUNTER → 2022-01-17 13:54 | Outpatient (CLI) | payer MEDICARE, BC, SELFPAY ==
[2017-11-20 10:10] VITALS: BMI 20.6
--- NOTE | 2022-01-17 13:59 | DI.ECHO.S_ITS ---
[facility]---------+ [facility] +---------+ : : [address] : : : : [id number] : : : : Phone: [phone]+ Echocardiogram Report + + :Name: FABY KOENIG Study Date: 01/17/2022 Height: 66 in : :[facility] ReadingLocation: Weight: 120 lb : : Gender: Female BSA: 1.6 m2 : :: 1945 Age: 76 yrs BP: 128/70 mmHg: :Reason For Study: CARDIAC MURMUR : :Ordering Physician: CHRISTI, : :RYAN Performed By: Melva Bautista : :Referring: RYAN BARRAZA : + + Interpretation Summary The left ventricle is normal in size and wall thickness. The ejection fraction is estimated to be 60-65%. The right ventricle is normal in size and function. Mild MR, mild AR, mild TR and mild ID without any significant valvular pathology. The IVC is of normal diameter and collapses greater than 50% with a sniff. This suggests a low right atrial pressure of 3 mm Hg. There is mild luminal irregularity and echogenicity in the abdominal aorta, suggestive of aortic atherosclerotic disease. Procedure: A two-dimensional transthoracic echocardiogram with color flow and Doppler was performed. The study quality was technically adequate. There is no prior echocardiogram noted for this patient. The patient was in sinus bradycardia with heart rates between 55-61 bpm during the exam. Left Ventricle: The left ventricle is normal in size and wall thickness. There is no thrombus. The ejection fraction is estimated to be 60-65%. There are no focal wall motion abnormalities. MV E/A: 1.2 Med Peak E' Andres: 10.0 cm/sec E/E' med: 10.1. Right Ventricle: The right ventricle is normal in size and function. Atria: The left atrium is mildly dilated. Right atrial size is normal. A prominent eustachian valve is noted. There is no Doppler evidence for an interatrial shunt. Mitral Valve: The mitral valve leaflets appear mildly thickened, but open well. There is mild mitral regurgitation. Aortic Valve: The aortic valve is trileaflet. The aortic valve opens well. There is no aortic valve stenosis. There is mild aortic regurgitation. Tricuspid Valve: There is tricuspid annular calcification. There is mild tricuspid regurgitation. The right ventricular systolic pressure is estimated to be at least 20 mmHg based on an estimated right atrial pressure of 3 mm Hg. Pulmonic Valve: The pulmonic valve leaflets are thin and pliable; valve motion is normal. There is mild pulmonic regurgitation. Great Vessels: The aortic root is normal size. The dimensions of the ascending aorta are normal. There is mild luminal irregularity and echogenicity in the abdominal aorta, suggestive of aortic atherosclerotic disease. The IVC is of normal diameter and collapses greater than 50% with a sniff. This suggests a low right atrial pressure of 3 mm Hg. Pericardium/ Pleura There is no pericardial effusion. There is no pleural effusion. MMode/2D Measurements & Calculations LVIDd: 4.3 cm LVOT diam: 1.9 cm LVIDs: 2.8 cm Ao root diam: 3.6 cm FS: 35.8 % asc Aorta Diam: 3.4 cm IVSd: 0.69 cm Ao Arch Diam (Prox Trans): 2.9 cm LVPWd: 0.74 cm LV pineda. diameter/BSA (cm/m^2): 2.7 LV sys. diameter/BSA (cm/m^2): 1.7 LA A2 area: 19.7 cm2 RA long axis: 4.5 cm LA A4 area: 16.7 cm2 RA area: 14.9 cm2 LA length (vol): 5.1 cm RA vol: 42.3 ml LA vol: 54.5 ml RA : 26.3 ml/m2 LA vol index: 33.8 ml/m2 IVC diam: 0.85 cm RVD1 (basal): 3.0 cm RVD2 (mid): 2.2 cm TAPSE: 2.1 cm Doppler Measurements & Calculations Ao V2 max: 134.7 cm/sec LVOT Max Andres: 108.1 cm/sec Ao V2 mean: 88.1 cm/sec LV V1 max P.7 mmHg Ao max P.3 mmHg LV V1 VTI: 25.4 cm Ao mean P.6 mmHg BRITANY(I,D): 2.7 cm2 Ao V2 VTI: 28.2 cm BRITANY(V,D): 2.4 cm2 sev ratio: 0.90 BRITANY indexed to BSA (cm^2/m^2): 1.7 AI P1/2t: 808.6 msec AI dec slope: 146.9 cm/sec2 MV E max andres: 100.8 cm/sec TR max andres: 205.2 cm/sec MV A max andres: 84.7 cm/sec TR max P.8 mmHg MV E/A: 1.2 PA V2 max: 77.9 cm/sec Med Peak E' Andres: 10.0 cm/sec PA V2 mean: 47.9 cm/sec E/E' med: 10.1 PA mean P.1 mmHg Lat Peak E' Andres: 10.3 cm/sec PA pr(Accel): 22.5 mmHg E/E' lat: 9.7 E/e' average: 9.9 MV dec time: 0.23 sec SV(LVOT): 75.3 ml Reading Physician:07:05 PM
== END ==
PROVIDERS: PCP Family Medicine; Referring Provider Family Medicine; Visit Provider Family Medicine
DX: R01.1 Cardiac murmur, unspecified (principal); I08.3 Combined rheumatic disorders of mitral, aortic and tricuspid valves
CPT/HCPCS: 93306

== ENCOUNTER → 2022-03-06 13:56 | Outpatient (CLI) | payer MEDICARE, BC, SELFPAY ==
[2017-11-20 10:10] VITALS: BMI 20.6
== END ==
PROVIDERS: PCP Family Medicine; Referring Provider Family Medicine; Visit Provider Family Medicine
DX: M81.0 Age-related osteoporosis without current pathological fracture (principal); M85.89 Other specified disorders of bone density and structure, multiple sites
CPT/HCPCS: 77080

== ENCOUNTER → 2022-04-09 10:54 | Outpatient (CLI) | payer MEDICARE, BC, SELFPAY ==
[2017-11-20 10:10] VITALS: BMI 20.6
--- NOTE | 2022-04-09 | DI.MG.S_ITS ---
BILATERAL DIGITAL SCREENING MAMMOGRAM 3D/2D WITH CAD: 04/09/2022 CLINICAL: Routine screening. Comparison is made to exams dated: 09/26/2020 mammogram, 07/05/2019 mammogram, and 05/16/2018 mammogram - [facility]. Both breasts are extremely dense, which lowers the sensitivity of mammography (category d />75% glandular tissue). Current study was also evaluated with a Computer Aided Detection (CAD) system. No significant masses, calcifications, or other findings are seen in either breast. There has been no significant interval change. IMPRESSION: NEGATIVE There is no mammographic evidence of malignancy. A 1 year screening mammogram is recommended. Based on the Tyrer Cuzick model (a risk assessment model) the patient's lifetime risk is 5.4% and her 10 year risk is 0.0%. According to the ACR, ACS, and NCCN guidelines, an annual breast MRI exam along with mammogram is recommended if the patient's lifetime risk is 20% or greater. This exam was interpreted at Station ID: [id number]. NOTE: For mammograms, a report in lay terms will be sent to the patient. Approximately 15% of breast malignancies will not be visualized mammographically. In the management of a palpable breast mass, a negative mammogram must not discourage biopsy of a clinically suspicious lesion. Electronically Signed By: Matthew gaffney/emery:04/09/2022 14:52:08 letter sent: Normal Exam ACR BI-RADS Category 1: Negative 3341F
== END ==
PROVIDERS: PCP Family Medicine; Referring Provider Family Medicine; Visit Provider Family Medicine
DX: Z12.31 Encounter for screening mammogram for malignant neoplasm of breast (principal)
CPT/HCPCS: 77063; 77067

== ENCOUNTER → 2023-06-17 08:34 | Outpatient (CLI) | payer MEDICARE, BC, SELFPAY ==
[2017-11-20 10:10] VITALS: BMI 20.6
--- NOTE | 2023-06-17 | DI.MG.S_ITS ---
BILATERAL DIGITAL SCREENING MAMMOGRAM 3D/2D WITH CAD: 06/17/2023 CLINICAL: Routine screening. Family history of breast cancer. Comparison is made to exams dated: 04/09/2022 mammogram, 09/26/2020 mammogram, and 07/05/2019 mammogram - [facility]. Both breasts are extremely dense, which lowers the sensitivity of mammography (category d />75% glandular tissue). Current study was also evaluated with a Computer Aided Detection (CAD) system. No significant masses, calcifications, or other findings are seen in either breast. There has been no significant interval change. IMPRESSION: NEGATIVE There is no mammographic evidence of malignancy. A 1 year screening mammogram is recommended. Based on the Tyrer Cuzick model (a risk assessment model) the patient's lifetime risk is 4.8% and her 10 year risk is 0.0%. According to the ACR, ACS, and NCCN guidelines, an annual breast MRI exam along with mammogram is recommended if the patient's lifetime risk is 20% or greater. This exam was interpreted at Station ID: [id number]. NOTE: For mammograms, a report in lay terms will be sent to the patient. Approximately 15% of breast malignancies will not be visualized mammographically. In the management of a palpable breast mass, a negative mammogram must not discourage biopsy of a clinically suspicious lesion. Electronically Signed By: Glen duong/emery:06/17/2023 12:07:11 letter sent: Normal Exam ACR BI-RADS Category 1: Negative [id number]
== END ==
PROVIDERS: PCP Family Medicine; Referring Provider Family Medicine; Visit Provider Family Medicine
DX: Z12.31 Encounter for screening mammogram for malignant neoplasm of breast (principal); Z80.3 Family history of malignant neoplasm of breast; R92.343 Mammographic extreme density, bilateral breasts
CPT/HCPCS: 77063; 77067

== ENCOUNTER → 2023-12-01 08:55 | Outpatient (CLI) | payer MEDICARE, BC, SELFPAY ==
[2017-11-20 10:10] VITALS: BMI 20.6
--- NOTE | 2023-12-01 08:56 | DI.US.S_ITS ---
LIMITED ULTRASOUND OF RIGHT BREAST: 12/01/2023 CLINICAL: Palpable right breast lump. Comparison is made to exams dated: 12/01/2023 mammogram, 06/17/2023 mammogram, 04/09/2022 mammogram, 09/26/2020 mammogram, 07/05/2019 mammogram, and 05/16/2018 mammogram - . Color flow and real-time ultrasound of the right breast 4 o'clock region were performed. Colon scale images of the real-time examination were reviewed. No significant abnormalities were seen sonographically in the right breast. IMPRESSION: NEGATIVE There is no sonographic evidence of malignancy. There is no abnormality seen in the right breast to correspond with the area of clinical concern and palpable abnormality in the lower inner quadrant, however, recommend clinical follow up for persistent or worsening symptoms, or development of any clinically suspicious findings. Return to screening mammogram is recommended. Future imaging is recommended as follows: 06/17/2024 screening mammogram. Findings and recommendations were conveyed to the patient during today's evaluation. This exam was interpreted at Station ID: [id number]. Electronically Signed By: Glen Farley M.D. aty/:12/01/2023 10:30:17 letter sent: Clinical Evaluation Ultrasound BI-RADS: 1 Negative
--- NOTE | 2023-12-01 08:56 | DI.MG.S_ITS ---
UNILATERAL RIGHT DIGITAL DIAGNOSTIC MAMMOGRAM 3D/2D: 12/01/2023 CLINICAL: BREAST LUMP. Comparison is made to exams dated: 06/17/2023 mammogram, 04/09/2022 mammogram, and 09/26/2020 mammogram - [facility]. The right breast is heterogeneously dense, which may obscure small masses (category c / 51-75% glandular tissue). There are benign calcifications in the right breast in the upper outer quadrant that are not significantly changed. No significant masses, calcifications, or other findings are seen in the breast. IMPRESSION: INCOMPLETE: NEEDS ADDITIONAL IMAGING EVALUATION There is no abnormalities identified to explain palpable area of patient concern in the right breast inferior aspect. This is indeterminate. An ultrasound is recommended for further evaluation and is scheduled to immediately follow this examination. Based on the Tyrer Cuzick model (a risk assessment model) the patient's lifetime risk is 2.8% and her 10 year risk is 0.0%. According to the ACR, ACS, and NCCN guidelines, an annual breast MRI exam along with mammogram is recommended if the patient's lifetime risk is 20% or greater. This exam was interpreted at Station ID: [id number]. NOTE: For mammograms, a report in lay terms will be sent to the patient. Approximately 15% of breast malignancies will not be visualized mammographically. In the management of a palpable breast mass, a negative mammogram must not discourage biopsy of a clinically suspicious lesion. Electronically Signed By: Glen Farley M.D. aty/:12/01/2023 09:44:40 ACR BI-RADS Category 0: Incomplete [id number]
== END ==
LOC: MAMMO 08:55
PROVIDERS: PCP Family Medicine; Referring Provider Family Medicine; Visit Provider Family Medicine
DX: R92.2 Inconclusive mammogram (principal); N63.14 Unspecified lump in the right breast, lower inner quadrant; R92.331 Mammographic heterogeneous density, right breast
CPT/HCPCS: 76642; 77065; G0279

== ENCOUNTER → 2023-12-19 07:12 | Outpatient (CLI) | payer MEDICARE, BC, SELFPAY ==
[2017-11-20 10:10] VITALS: BMI 20.6
--- NOTE | 2023-12-19 | DI.ECHO.S_ITS ---
[place] [facility]+ [facility] : : [id number] : [place] : : [id number] : : Phone: [phone] Echocardiogram Report + + :Name: FABY KOENIG Study Date: 12/19/2023 Height: 66 in : :[facility] ReadingLocation: Weight: 107 lb : : Gender: Female BSA: 1.5 m2 : :: 1945 Age: 78 yrs BP: 128/67 mmHg: :Reason For Study: SYSTOLIC MURMUR : :Ordering Physician: CHRISTI, : :RYAN Performed By: Melva Bautista : :Referring: RYAN BARRAZA : + + Interpretation Summary The ejection fraction is estimated to be 60-65%. Grade I diastolic dysfunction. The right ventricular systolic function is normal. The left atrium is mildly dilated. The right ventricular systolic pressure is estimated to be at least 22 mmHg based on an estimated right atrial pressure of 3 mm Hg. There is mild mitral regurgitation. There is mild tricuspid regurgitation. There is mild aortic regurgitation. No significant change from prior study in 12/2021. Procedure: A two-dimensional transthoracic echocardiogram with color flow and Doppler was performed. The study quality was technically adequate. Comparison is made with the echocardiogram of 01/17/2022. The patient was in sinus rhythm with heart rates between 59-72 bpm during the exam. Left Ventricle: The left ventricle is normal in size and wall thickness. The ejection fraction is estimated to be 60-65%. Left ventricular wall motion is normal. Grade I diastolic dysfunction. Right Ventricle: The right ventricle is normal size. The right ventricular systolic function is normal. Atria: The left atrium is mildly dilated. Right atrial size is normal. There is no Doppler evidence for an interatrial shunt. Mitral Valve: The mitral valve is normal in structure and function. There is mild mitral regurgitation. There are multiple regurgitant jets present. Aortic Valve: The aortic valve is trileaflet. The aortic valve opens well. There is no aortic valve stenosis. There is mild aortic regurgitation. Tricuspid Valve: The tricuspid valve is normal in structure and function. There is mild tricuspid regurgitation. The right ventricular systolic pressure is estimated to be at least 22 mmHg based on an estimated right atrial pressure of 3 mm Hg. Pulmonic Valve: The pulmonic valve is not well visualized. There is no pulmonic valvular regurgitation. Great Vessels: The aortic root is normal size. The dimensions of the ascending aorta are normal. The IVC is of normal diameter and collapses greater than 50% with a sniff. This suggests a low right atrial pressure of 3 mm Hg. Pericardium/ Pleura There is no pericardial effusion. There is no pleural effusion. MMode/2D Measurements & Calculations LVIDd: 3.6 cm LVOT diam: 2.0 cm LVIDs: 2.2 cm Ao root diam: 3.3 cm FS: 37.6 % asc Aorta Diam: 3.1 cm IVSd: 0.77 cm Ao Arch Diam (Prox Trans): 2.7 cm LVPWd: 0.89 cm LV pineda. diameter/BSA (cm/m^2): 2.3 LV sys. diameter/BSA (cm/m^2): 1.5 LA A2 area: 19.1 cm2 RA long axis: 4.8 cm LA A4 area: 18.4 cm2 RA area: 15.2 cm2 LA length (vol): 5.2 cm RA vol: 40.5 ml LA vol: 57.2 ml RA : 26.4 ml/m2 LA vol index: 37.3 ml/m2 IVC diam: 0.93 cm RVD1 (basal): 3.5 cm RVD2 (mid): 2.9 cm TAPSE: 1.6 cm Doppler Measurements & Calculations Ao V2 max: 112.0 cm/sec LVOT Max Andres: 116.2 cm/sec Ao V2 mean: 74.9 cm/sec LV V1 max P.4 mmHg Ao max P.5 mmHg LV V1 VTI: 22.3 cm Ao mean P.8 mmHg BRITANY(I,D): 3.1 cm2 Ao V2 VTI: 22.1 cm BRITANY(V,D): 3.2 cm2 sev ratio: 1.0 BRITANY indexed to BSA (cm^2/m^2): 2.0 AI P1/2t: 684.1 msec AI dec slope: 167.5 cm/sec2 MV E max andres: 85.5 cm/sec TR max andres: 219.3 cm/sec MV A max andres: 89.6 cm/sec TR max P.2 mmHg MV E/A: 0.95 PA pr(Accel): 46.5 mmHg Med Peak E' Andres: 7.6 cm/sec E/E' med: 11.3 Lat Peak E' Andres: 7.9 cm/sec E/E' lat: 10.8 E/e' average: 11.0 MV dec time: 0.17 sec SVLVOT): 67.8 ml Reading Physician:DAVID
== END ==
LOC: ECHO 07:13
PROVIDERS: PCP Family Medicine; Referring Provider Family Medicine; Visit Provider Family Medicine
DX: R01.1 Cardiac murmur, unspecified (principal); I08.3 Combined rheumatic disorders of mitral, aortic and tricuspid valves
CPT/HCPCS: 93306

== ENCOUNTER → 2024-05-31 11:56 | Outpatient (CLI) | payer MEDICARE, BC, SELFPAY ==
[2017-11-20 10:10] VITALS: BMI 20.6
--- NOTE | 2024-05-31 11:58 | DI.RAD.S_ITS ---
PROCEDURE: XR FINGER LT MIN 2V INDICATIONS: Slammed door on left thumb TECHNIQUE: AP hand, 2 views of the 1st finger(s) acquired. COMPARISON: None. FINDINGS: Bones: Overlying material limits evaluation. Likely fracture over the dorsal aspect of the 1st distal phalanx base.. No suspicious bony lesions. Soft tissues: No suspicious soft tissue calcifications. IMPRESSION: Overlying material limits evaluation. Likely fracture over the dorsal aspect of the first distal phalanx base. Dictated by: Dickson Lepe M.D. on 05/31/2024 at 12:17 Approved by: Dickson Lepe M.D. on 05/31/2024 at 12:31
== END ==
PROVIDERS: PCP Family Medicine; Referring Provider Nurse Practitioner Family; Visit Provider Nurse Practitioner Family
DX: S60.012A Contusion of left thumb without damage to nail, initial encounter (principal); W23.2XXA Caught, crushed, jammed or pinched between a moving and stationary object, initial encounter
CPT/HCPCS: 73140

== ENCOUNTER → 2024-06-07 09:57 | Outpatient (CLI) | payer MEDICARE, BC, SELFPAY ==
[2017-11-20 10:10] VITALS: BMI 20.6
--- NOTE | 2024-06-07 10:01 | DI.RAD.S_ITS ---
PROCEDURE: XR FINGER LT MIN 2V INDICATIONS: THUMB PAIN TECHNIQUE: AP hand, 2 views of the 1st finger(s) acquired. COMPARISON: [facility], , XR FINGER LT MIN 2V, 05/31/2024, 12:02. FINDINGS: Bones: Similar bone fragment along the lateral aspect of the 1st distal phalanx base. Soft tissues: No suspicious soft tissue calcifications. IMPRESSION: Similar bone fragment along the lateral aspect of the 1st distal phalanx base. Findings are suspicious for a small fracture, less likely due to degenerative change. Dictated by: Nestor Brown M.D. on 06/07/2024 at 13:43 Approved by: Nestor Brown M.D. on 06/07/2024 at 13:44
== END ==
PROVIDERS: PCP Family Medicine; Referring Provider Family Medicine; Visit Provider Family Medicine
DX: M79.645 Pain in left finger(s) (principal)
CPT/HCPCS: 73140

== ENCOUNTER → 2024-06-22 08:38 | Outpatient (CLI) | payer MEDICARE, BC, SELFPAY ==
[2017-11-20 10:10] VITALS: BMI 20.6
--- NOTE | 2024-06-22 | DI.MG.S_ITS ---
BILATERAL DIGITAL SCREENING MAMMOGRAM 3D/2D WITH CAD: 06/22/2024 CLINICAL: Routine screening. Family history of breast cancer. Comparison is made to exams dated: 06/17/2023 mammogram, 04/09/2022 mammogram, and 09/26/2020 mammogram - [facility]. The breasts are heterogeneously dense, which may obscure small masses (category c / 51-75% glandular tissue). Current study was also evaluated with a Computer Aided Detection (CAD) system. There is a benign calcification in the right breast. No significant masses, calcifications, or other findings are seen in either breast. There has been no significant interval change. IMPRESSION: BENIGN There is no mammographic evidence of malignancy. A 1 year screening mammogram is recommended. Based on the Tyrer Cuzick model (a risk assessment model) the patient's lifetime risk is 2.8% and her 10 year risk is 0.0%. According to the ACR, ACS, and NCCN guidelines, an annual breast MRI exam along with mammogram is recommended if the patient's lifetime risk is 20% or greater. This exam was interpreted at Station ID: [id number]. NOTE: For mammograms, a report in lay terms will be sent to the patient. Approximately 15% of breast malignancies will not be visualized mammographically. In the management of a palpable breast mass, a negative mammogram must not discourage biopsy of a clinically suspicious lesion. Electronically Signed By: Juan scott/emery:06/22/2024 13:52:17 letter sent: Normal Exam ACR BI-RADS Category 2: Benign
== END ==
PROVIDERS: PCP Family Medicine; Referring Provider Family Medicine; Visit Provider Family Medicine
DX: Z12.31 Encounter for screening mammogram for malignant neoplasm of breast (principal); R92.1 Mammographic calcification found on diagnostic imaging of breast; R92.333 Mammographic heterogeneous density, bilateral breasts; Z80.3 Family history of malignant neoplasm of breast
CPT/HCPCS: 77063; 77067

== ENCOUNTER → 2024-07-09 10:46 | Outpatient (CLI) | payer MEDICARE, BC, SELFPAY ==
[2017-11-20 10:10] VITALS: BMI 20.6
--- NOTE | 2024-07-09 10:49 | DI.RAD.S_ITS ---
PROCEDURE: XR FINGER LT MIN 2V INDICATIONS: THUMB PAIN' TECHNIQUE: AP hand, 2 views of the thumb acquired. COMPARISON: [facility], CR, XR FINGER LT MIN 2V, 06/07/2024, 10:06. FINDINGS: Bones: Small well corticated osseous fragment noted once again at the dorsoradial margin of the 1st interphalangeal joint space. No fractures or dislocations are otherwise noted. No suspicious bony lesions. Soft tissues: No suspicious soft tissue calcifications. IMPRESSION: Well-corticated fragment within the dorsal radial margin of the 1st interphalangeal joint space may be quality audit representative of sequelae of a remote avulsion fracture. No evidence of acute fracture Dictated by: Domenico Rodas M.D. on 07/10/2024 at 12:09 Approved by: Domenico Rodas M.D. on 07/10/2024 at 12:12
== END ==
PROVIDERS: PCP Family Medicine; Referring Provider Family Medicine; Visit Provider Family Medicine
DX: M79.645 Pain in left finger(s) (principal)
CPT/HCPCS: 73140

== ENCOUNTER → 2024-08-12 14:21 | Outpatient (CLI) | payer MEDICARE, BC, SELFPAY ==
[2017-11-20 10:10] VITALS: BMI 20.6
--- NOTE | 2024-08-12 14:23 | DI.RAD.S_ITS ---
PROCEDURE: XR DEXA AXIAL SKELETON INDICATIONS: SCREENING FOR OSTEOPOROSIS COMPARISON: [facility], , XR DEXA AXIAL SKELETON, 03/06/2022, 14:15. [facility], CR, XR DEXA AXIAL SKELETON, 03/23/2020, 15:32. FINDINGS: Left Femoral Neck: Bone mineral density 0.557 g/cm2, T score -2.6. Left Hip: Bone mineral density 0.638 g/cm2, T score -2.5, decreased by 11.7 percent. Left Forearm: Bone mineral density 0.5 x 0 g/cm2, T score -2.4. Fracture Risk Calculation (when applicable): Calculated secondary to osteoporosis. (T score greater or equal to -1.0 to: NORMAL) (T score from -1.1 to -2.4: OSTEOPENIA) (T score less than or equal to -2.5: OSTEOPOROSIS) IMPRESSION: Osteoporosis by WHO classification. Follow-up guidelines as follows: Osteoporosis: Consider a repeat DEXA and Vertebral Fracture Assessment (VFA) exam in 2 years or sooner if medically necessary, to reassess this patient's status. Osteopenia: Consider a repeat DEXA in 2-3 years to reassess this patient's status, or if there is a new clinical indication. Normal: Consider a repeat DEXA in 5 years or sooner, or if there is a new clinical indication. All treatment decisions require clinical judgment and consideration of individual patient factors, including patient preferences, comorbidities, previous drug use, risk factors not captured in the FRAX model (e.g., frailty, falls, vitamin D deficiency, increased bone turnover, interval significant decline in bone density ) and possible under- or over-estimation of fracture risk by FRAX. In addition, the NOF Guide recommends that FDA-approved medical therapies be considered in postmenopausal women and men age >= 50 years with a: * Hip or vertebral (clinical or morphometric) fracture * T-score of <=-2.5 at the spine or hip * Ten-year fracture probability by FRAX of >= 3% for hip fracture or >=20% for major osteoporotic fracture. Dictated by: Dickson Lepe M.D. on 08/13/2024 at 11:23 Approved by: Dickson Lepe M.D. on 08/13/2024 at 11:24
== END ==
PROVIDERS: PCP Family Medicine; Referring Provider Family Medicine; Visit Provider Family Medicine
DX: M81.0 Age-related osteoporosis without current pathological fracture (principal)
CPT/HCPCS: 77080